=== PATIENT | female | born 2005 | race African-American/Black ===

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

== ENCOUNTER → 2023-10-28 | Outpatient (CLI) | payer OTHER ==
--- NOTE | 2023-10-28 11:11 | US ---
EXAMINATION TYPE: Ultrasound OB <= 14 week fetus DATE OF EXAM: 10/28/2023 10:50 AM COMPARISON: NONE CLINICAL INDICATION: Female, 18 years old with history of N92.6 IRREG MENSTRUATION; Pelvic pain x few days EXAM PERFORMED: Transabdominal (TA) EXAM MEASUREMENTS: GESTATIONAL AGE / DATING Physician Established: NA Dates by LMP: (5 weeks/0 days) EDC: 06/29/2024 Dates by First Scan: This is First Scan Dates by Current Scan for: (8 weeks/4 days) EDC: 06/04/2024 MATERNAL ANATOMY Uterus: 10.4 x 7.7 x 8.5 Transverse images show splitting of the endometrium at the fundus. Right Ovary: 4.1 x 2.1 x 3.5 cm Left Ovary: 3.2 x 2.3 x 2.6 cm Post CDS / Adnexa: No Presence of free fluid: No Presence of corpus luteal cyst: Right ovary Presence of subchorionic bleed: No GESTATION / SURVEY CRL: 1.99 (8 weeks/4 days) MSD: NA Yolk Sac (normal less than 6mm): 0.35 Heart Rate: 166 bpm Rhythm: Normal IUP: Viable IUP Nuchal Translucency 10-14wks (normal less than 3mm): NA Date of LMP: 09/23/2024 Beta HcG (if available): Not available Vrt Mechanic notes: Stat hold and call - office notified; patient to call office with any questions IMPRESSION: 1. Single live intrauterine with estimated gestational age of 5 weeks 0 days by LMP. Mac jose, current ultrasound biometry is older at 8 weeks 4 days. Correlate as to accuracy of recall of LMP. 2. Transverse images show splitting of the endometrium at the fundus of the uterus. Findings could re flect arcuate configuration versus partially septate uterus. 3. Complete survey recommended at 18-20 weeks.
== END | disposition home or self-care (01) ==
LOC: RADUSWWP 10:35
PROVIDERS: ATTEND Internal Medicine
DX: O26.891 Other specified pregnancy related conditions, first trimester (principal); N92.6 Irregular menstruation, unspecified; Z3A.08 8 weeks gestation of pregnancy
CPT/HCPCS: 76801

== ENCOUNTER 2023-11-13 02:15 | Emergency (ER) | payer OTHER ==
[2023-11-13] MEDS ORDERED: IPRATROPIUM-ALBUTEROL 3 ML NEB INHALATION STA (02:17)
[2023-11-13 02:34] VITALS: PULSE 96
--- NOTE | 2023-11-13 02:59 | ED ---
General Adult HPI - General Chief complaint: Shortness of Breath Stated complaint: ANJU Time Seen by Provider: 11/13/23 02:17 Source: patient, EMS, RN notes reviewed, old records reviewed Mode of arrival: EMS Limitations: no limitations - History of Present Illness Initial comments: Patient is a 18-year-old female presents emergency department for asthma exacerbation. Patient was wheezy at home. Was told to stop taking all her medications that she is 2 months by [facility]. Has not followed up with an [facility]. Medications included daily inhaler. States she became more short of breath today. Typically does not require admission to the hospital or evaluation at the hospital for her asthma. However has been off of her daily medication inhaler as it was a steroid inhaler. She denies any sick contacts or fevers. Denies any productive cough. States she feels improved after receiving a DuoNeb on the way to the hospital by EMS. His no other acute complaints at this time. Presents for further evaluation. Denies any vaginal discharge or bleeding. Has not yet followed up with [facility]. - Related Data Previous Rx's Medication Instructions Recorded Paliperidone [Invega] 3 mg PO HS 30 Days #30 tab 06/01/22 lamoTRIgine [LaMICtal] 25 mg PO DAILY #30 tab 06/01/22 levETIRAcetam [Keppra] 500 mg PO Q12HR 30 Days #60 tab 06/01/22 lamoTRIgine [LaMICtal] 25 mg PO DAILY #30 tab 08/12/22 Cephalexin [Keflex] 500 mg PO Q12HR 1 Days #14 cap 08/25/22 Albuterol Inhaler [Ventolin Hfa 2 puff INHALATION QID #8 gm 11/13/23 Inhaler] Allergies Allergy/AdvReac Type Severity Reaction Status Date / Time ondansetron [From Zofran] Allergy Itching Verified 08/12/22 02:12 Review of Systems ROS Statement: Those systems with pertinent positive or pertinent negative responses have been documented in the HPI. Review of Systems: CONST: Denies fever EYES: Denies blurry vision ENT: Denies nasal congestion C/V: Denies Chest pain RESP: Endorses wheezing GI: Denies abdominal pain : Denies dysuria SKIN: Denies rash. MSK: Denies joint pain. NEURO: Denies headache ROS Other: All systems not noted in ROS Statement are negative. Past Medical History Past Medical History: Asthma, Seizure Disorder History of Any Multi-Drug Resistant Organisms: None Reported Past Surgical History: No Surgical Hx Reported Past Psychological History: No Psychological Hx Reported, Schizoaffective Disorder Smoking Status: Current every day smoker, Vaper Past Alcohol Use History: None Reported Past Drug Use History: Marijuana General Exam - General Exam Comments Initial Comments: General: Appears in no acute distress. HEAD: Normal with no signs of head trauma. EYES: PERRLA, EOMI, conjunctiva normal, no discharge. ENT: Hearing grossly intact, normal oropharynx. RESPIRATORY: Mild bilateral end expiratory wheezing. No increased work of breathing. No significant hypoxia. C/V: Regular rate and rhythm. S1 and S2 auscultated, peripheral pulses 2+ and intact throughout ABD: Abd is soft, nontender, nondistended EXT: Normal range of motion, no obvious deformity SKIN: No rashes or lesions observed on exposed skin. NEURO: Alert and oriented x 4. Limitations: no limitations Course Vital Signs 11/13/23 11/13/23 11/13/23 02:22 02:25 02:31 Pulse Rate 111 H 96 Respiratory 20 20 Rate Blood Pressure 130/89 O2 Sat by Pulse 94 L Oximetry Medical Decision Making - Medical Decision Making Was pt. sent in by a medical professional or institution (MEAGAN Olivas, [employer], urgent care, hospital, or correction...) When possible be specific @ -No Did you speak to anyone other than the patient for history (EMS, parent, family, police, friend...)? What history was obtained from this source @ -No Did you review nursing and triage notes (agree or disagree)? Why? @ -I reviewed and agree with nursing and triage notes Were old charts reviewed (outside hosp., previous admission, EMS record, old EKG, old radiological studies, urgent care reports/EKG's, correction records)? Report findings @ -Old charts reviewed Differential Diagnosis (chest pain, altered mental status, abdominal pain women, abdominal pain men, vaginal bleeding, weakness, fever, dyspnea, syncope, headache, dizziness, GI bleed, back pain, seizure, CVA, palpatations, mental health, musculoskeletal)? @ -Asthma, pneumonia, viral infection. This list is not all inclusive. EKG interpreted by me (3pts min.). @ -None done X-rays interpreted by me (1pt min.). @ -None done CT interpreted by me (1pt min.). @ -None done U/S interpreted by me (1pt. min.). @ -None done What testing was considered but not performed or refused? (CT, X-rays, U/S, lab s)? Why? @ -Offered chest x-ray but as the patient is we both agreed to defer at this time. What meds were considered but not given or refused? Why? @ -Consider prednisone but it is a category C rating and that was deferred at this time. Did you discuss the management of the patient with other professionals (professionals i.e. , PA, [employer] MANAGER, lab, RT, psych nurse, social media editor, receiver stocker, teacher, police officer booking, behavioral health case manager)? Give summary @ -No Was smoking cessation discussed for >3mins.? @ -No Was critical care preformed (if so, how long)? @ -No Were there social determinants of health that impacted care today? How? (Homelessness, low income, unemployed, alcoholism, drug addiction, transportation, low edu. Level, literacy, decrease access to med. care, detention, rehab)? @ -No Was there de-escalation of care discussed even if they declined (Discuss DNR or withdrawal of care, Hospice)? DNR status @ -No What co-morbidities impacted this encounter? (DM, HTN, Smoking, COPD, CAD, Cancer, CVA, ARF, Chemo, Hep., AIDS, mental health diagnosis, sleep apnea, morbid obesity)? @ -None Was patient admitted / discharged? Hospital course, mention meds given and route, prescriptions, significant lab abnormalities, going to OR and other pertinent info. @ -Based on the patient's presentation and physical exam, appears to have a mild asthma exacerbation. Is never required admission for an asthma exacerbation. Has been off of her home inhaler. I did offer additional DuoNeb which she accepted. Vital signs currently within acceptable limits. Wheezing seems to be improved. We will obtain viral swabs. Discussed obtaining a chest x-ray will patient is 8 weeks and defers at this time. She is not yet followed up with her [facility]. Denies any vaginal complaints at this time. Vital signs are currently within acceptable limits. Vital signs returned negative. On reevaluation, wheezing has resolved. We discussed her workup and diagnosis of possible URI as well as asthma exacerbation that is very mild. I will write a prescription for albuterol inhaler. We did discuss risks and benefits of prednisone as it is a class C and decided to defer at this time. No indication for antibiotics at this time. Patient will follow up with PCP. I will provide her with a contact info for on-call [facility] T[facility]ER. She is already on vitamins. She was in agreement this plan. I will provide the patient with a prescription for albuterol. I instructed the patient to follow up with their PCP in the next 1-3 days. I explained that the patient should return to the emergency department if they experience any worseni ng symptoms. Strict return precautions were discussed with the patient. The patient expressed understanding of these instructions. I answered all questions that the patient had. The patient was discharged home in good condition with their prescriptions and follow up information. Undiagnosed new problem with uncertain prognosis? @ -No Drug Therapy requiring intensive monitoring for toxicity (Heparin, Nitro, Insulin, Cardizem)? @ -No Were any procedures done? @ -No Diagnosis/symptom? @ -Asthma, uri Acute, or Chronic, or Acute on Chronic? @ -Acute on chronic Uncomplicated (without systemic symptoms) or Complicated (systemic symptoms)? @ -Complicated Side effects of treatment? @ -No Exacerbation, Progression, or Severe Exacerbation? @ -No Poses a threat to life or bodily function? How? (Chest pain, USA, [place], pneumonia, PE, COPD, DKA, ARF, appy, cholecystitis, CVA, Diverticulitis, Homicidal, Suicidal, threat to staff... and all critical care pts) @ -No - Lab Data Lab Results 11/13/23 Range/Units 02:10 Influenza Type A (PCR) Not Detected (Not Detectd) Influenza Type B (PCR) Not Detected (Not Detectd) RSV (PCR) Not Detected (Not Detectd) SARS-CoV-2 (PCR) Not Detected (Not Detectd) Disposition Clinical Impression: Asthma, URI (upper respiratory infection) Disposition: HOME SELF-CARE Condition: Good Instructions (If sedation given, give patient instructions): Asthma (ED) Prescriptions: Albuterol Inhaler [Ventolin Hfa Inhaler] 2 puff INHALATION QID #8 gm Is patient prescribed a controlled substance at d/c from ED?: No Referrals: None,Stated [Primary Care Provider] - 1-2 days Hedy Santiago MD [STAFF PHYSICIAN] - 1-2 days Time of Disposition: 03:29
[2023-11-13 04:13] VITALS: BP 130/76; RESP 16; TEMP 98.2
== END 2023-11-13 03:43 | disposition home or self-care (01) ==
LOC: EC 02:15
DX: O26.891 Other specified pregnancy related conditions, first trimester (principal); O99.511 Diseases of the respiratory system complicating pregnancy, first trimester; J06.9 Acute upper respiratory infection, unspecified; J45.901 Unspecified asthma with (acute) exacerbation; O99.331 Smoking (tobacco) complicating pregnancy, first trimester; F12.90 Cannabis use, unspecified, uncomplicated; F17.290 Nicotine dependence, other tobacco product, uncomplicated; Z88.8 Allergy status to other drugs, medicaments and biological substances; Z20.822 Contact with and (suspected) exposure to COVID-19
CPT/HCPCS: 87636; 94640; 99285

== ENCOUNTER 2023-12-03 16:23 | Emergency (ER) | payer OTHER ==
[2023-12-03] MEDS ORDERED: SODIUM CHLORIDE 0.9% 1,000 ML IV STA (16:40)
[2023-12-03] MEDS ORDERED: METOCLOPRAMIDE 5 MG/ML 2 ML VIAL IVP STA (16:40)
[2023-12-03] MEDS ORDERED: ACETAMINOPHEN IV (For NPO) 1,000 MG in EMPTY BAG 1 BAG IVPB ONE (17:00)
--- NOTE | 2023-12-03 17:03 | ED ---
Female Urogenital HPI - General Source: patient, RN notes reviewed Mode of arrival: EMS Limitations: no limitations - History of Present Illness MD Complaint: vaginal bleeding, vaginal discharge Last Menstrual Period: 08/15/23 <Lauren Galeana - Last Filed: 12/03/23 18:54> <Anuja Mayo - Last Filed: 12/03/23 22:08> - General Chief complaint: OB/Uterine Contractions Stated complaint: 14wk preg-cramping Time Seen by Provider: 12/03/23 16:26 - History of Present Illness Initial comments: This is a 18 year old female who presents to the emergency department for pelvic pain, cramping, and leaking in . Patient is and believes that she is approximately 14 weeks . She was playing volleyball at the [employer] earlier today, and went to sit down to take a break. She then noticed a gush of fluid and bloody discharge, and is concerned that her water broke. She does not yet have an [facility] BU[facility]DER, but states that she has been seeing someone at [facility] She did have an ultrasound there, and they advised that she may be further along than she thought. She has had problems with ongoing cramping for the last couple of weeks. Reports associated nausea and vomiting. (Lauren Galeana) - Related Data Previous Rx's Medication Instructions Recorded Paliperidone [Invega] 3 mg PO HS 30 Days #30 tab 06/01/22 lamoTRIgine [LaMICtal] 25 mg PO DAILY #30 tab 06/01/22 levETIRAcetam [Keppra] 500 mg PO Q12HR 30 Days #60 tab 06/01/22 lamoTRIgine [LaMICtal] 25 mg PO DAILY #30 tab 08/12/22 Cephalexin [Keflex] 500 mg PO Q12HR 1 Days #14 cap 08/25/22 Albuterol Inhaler [Ventolin Hfa 2 puff INHALATION QID #8 gm 11/13/23 Inhaler] Allergies Allergy/AdvReac Type Severity Reaction Status Date / Time ondansetron [From Zofran] Allergy Itching Verified 08/12/22 02:12 Review of Systems ROS Other: All systems not noted in ROS Statement are negative. <Lauren Galeana - Last Filed: 12/03/23 18:54> ROS Other: All systems not noted in ROS Statement are negative. <Anuja Mayo - Last Filed: 12/03/23 22:08> ROS Statement: Those systems with pertinent positive or pertinent negative responses have been documented in the HPI. Past Medical History Past Medical History: Asthma, Seizure Disorder History of Any Multi-Drug Resistant Organisms: None Reported Past Surgical History: No Surgical Hx Reported Past Psychological History: No Psychological Hx Reported, Schizoaffective Disorder Smoking Status: Current every day smoker, Vaper Past Alcohol Use History: None Reported Past Drug Use History: Marijuana <Lauren Galeana - Last Filed: 12/03/23 18:54> General Exam Limitations: no limitations General appearance: alert, in no apparent distress Head exam: Present: atraumatic, normocephalic, normal inspection Respiratory exam: Present: normal lung sounds bilaterally. Absent: respiratory distress, wheezes, rales, rhonchi, stridor Cardiovascular Exam: Present: regular rate, normal rhythm, normal heart sounds. Absent: systolic murmur, diastolic murmur, rubs, gallop, clicks Neurological exam: Present: alert, oriented X3, CN II-XII intact Psychiatric exam: Present: normal affect, normal mood Skin exam: Present: warm, dry, intact, normal color. Absent: rash <Lauren Galeana - Last Filed: 12/03/23 18:54> Course Vital Signs 12/03/23 12/03/23 12/03/23 16:28 17:47 18:57 Temperature 98.0 F Pulse Rate 101 H 74 Respiratory 22 16 16 Rate Blood Pressure 124/77 Blood Pressure 115/76 [Left Arm] O2 Sat by Pulse 100 100 100 Oximetry 12/03/23 22:00 Temperature 98.4 F Pulse Rate 80 Respiratory 18 Rate Blood Pressure 125/74 Blood Pressure [Left Arm] O2 Sat by Pulse 98 Oximetry Medical Decision Making - Lab Data Result diagrams: 12/03/23 16:53 12/03/23 16:53 - Radiology Data Radiology results: report reviewed, image reviewed <Lauren Galeana - Last Filed: 12/03/23 18:54> - Lab Data Result diagrams: 12/03/23 16:53 12/03/23 16:53 <Anuja Mayo - Last Filed: 12/03/23 22:08> - Medical Decision Making This is a 18-year-old female who presents to the emergency department for vaginal bleeding and pelvic pain in . Was pt. sent in by a medical professional or institution? @ -No Did you speak to anyone other than the patient for history? @ -No Did you review nursing and triage notes? @ -Yes, and I agree, it is accurate with regards to the patient's symptoms. Were old charts reviewed? @ -No Differential Diagnosis? @ -Differential Vaginal Bleeding: Spontaneous , threatened , molar , ectopic , incompetent cervix, placenta previa, uterine rupture, dysfunctional uterine bleeding, hemorrhage, uterine fibroids, malignancy, coagulopathy, PID, cervicitis, adenomyosis, vaginal trauma, this is not meant to be an all- inclusive list. EKG interpreted by me (3pts min.)? @ -Not obtained X-rays interpreted by me (1pt min.)? @ -Not obtained CT interpreted by me (1pt min.)? @ -Not obtained U/S interpreted by me (1pt. min.)? @ -Not obtained What testing was considered but not performed? (CT, X-rays, U/S, labs)? Why? @ -None What meds were considered but not given? Why? @ -None Did you discuss the management of the patient with other professionals? @ -No Did you reconcile home meds? @ -No Was smoking cessation discussed for >3mins.? @ -No Was critical care preformed (if so, how long)? @ -No Were there social determinants of health that impacted care today? How? (Homelessness, low income, unemployed, alcoholism, drug addiction, transportation, low edu. Level, literacy, decrease access to med. care, retirement, rehab)? @ -No Was there de-escalation of care discussed even if they declined? (Discuss DNR or withdrawal of care, Hospice)? @ -No What co-morbidities impacted this encounter? (DM, HTN, Smoking, COPD, CAD, Cancer, CVA, Hep., AIDS, mental health diagnosis, sleep apnea, morbid obesity)? @ - Was patient admitted / discharged? @ -Lab work obtained and found to be unremarkable. Beta hCG is 57,181. Blood type is A+ and no RhoGAM is indicated. OB ultrasound obtained revealing a single live intrauterine without any abnormalities to account for the patient's symptoms. Patient may have urinated on herself, causing her to feel like her water broke. Case signed out to Anuja Mayo PA-C, at shift completion pending UA results. Undiagnosed new problem with uncertain prognosis? @ -None Drug Therapy requiring intensive monitoring for toxicity (Heparin, Nitro, Insulin, Cardizem)? @ -None Were any procedures done? @ -None (Lauren Galeana) Patient was signed out to me by previous physician care team assistant Lauren, pending urine results. In short this is a 18-year-old female currently about 14 weeks presenting after she had a gush of fluid today after playing volleyball. Patient has a normal ultrasound revealing single live intrauterine without any abnormalities. Urine returns and shows no bacteria. Urine drug screen positive for marijuana. Patient is discharged home and instructed to follow-up with [facility]. Diagnosis/symptom? @ -Threatened miscarriage Acute, or Chronic, or Acute on Chronic? @ -Acute Uncomplicated (without systemic symptoms) or Complicated (systemic symptoms)? @ -Uncomplicated Side effects of treatment? @ -No Exacerbation, Progression, or Severe Exacerbation? @ -No Poses a threat to life or bodily function? How? (Chest pain, USA, [place], pneumonia, PE, COPD, DKA, ARF, appy, cholecystitis, CVA, Diverticulitis, Homicidal, Suicidal, threat to staff... and all critical care pts) @ -No (Anuja Mayo) - Lab Data Lab Results 12/03/23 12/03/23 12/03/23 Range/Units 16:47 16:53 16:53 WBC 6.4 (4.0-11.0) k/uL RBC 3.96 (3.80-5.40) m/uL Hgb 11.8 (11.4-16.0) gm/dL Hct 34.7 (34.0-46.0) % MCV 87.7 (80.0-100.0) fL MCH 29.7 (25.0-35.0) pg MCHC 33.9 (31.0-37.0) g/dL RDW 14.1 (11.5-15.5) % Plt Count 246 (150-450) k/uL MPV 8.8 Neutrophils % 54 % Lymphocytes % 34 % Monocytes % 4 % Eosinophils % 6 % Basophils % 0 % Neutrophils # 3.4 (1.3-7.7) k/uL Lymphocytes # 2.1 (1.0-4.8) k/uL Monocytes # 0.3 (0-1.0) k/uL Eosinophils # 0.4 (0-0.7) k/uL Basophils # 0.0 (0-0.2) k/uL Sodium (137-145) mmol/L Potassium (3.5-5.1) mmol/L Chloride (98-107) mmol/L Carbon Dioxide (22-30) mmol/L Anion Gap mmol/L BUN (7-17) mg/dL Creatinine (0.52-1.04) mg/dL Est GFR (CKD-EPI)AfAm (>60 ml/min/1.73 sqM) Est GFR (CKD-EPI)NonAf (>60 ml/min/1.73 sqM) Glucose (74-99) mg/dL Calcium (8.4-10.2) mg/dL Total Bilirubin (0.2-1.3) mg/dL AST (14-36) U/L ALT (4-34) U/L Alkaline Phosphatase (38-126) U/L Total Protein (6.3-8.2) g/dL Albumin (3.5-5.0) g/dL HCG, Quant mIU/mL Urine Color Yellow Urine Appearance Clear (Clear) Urine pH 6.0 (5.0-8.0) Ur Specific [place] 1.049 H (1.001-1.035) Urine Protein Trace H (Negative) Urine Glucose (UA) Negative (Negative) Urine Ketones Trace H (Negative) Urine Blood Negative (Negative) Urine Nitrite Negative (Negative) Urine Bilirubin Negative (Negative) Urine Urobilinogen 2.0 (<2.0) mg/dL Ur Leukocyte Esterase Negative (Negative) Urine Opiates Screen (NotDetected) Ur Oxycodone Screen (NotDetected) Urine Methadone Screen (NotDetected) Ur Barbiturates Screen (NotDetected) U Tricyclic Antidepress (NotDetected) Ur Phencyclidine Scrn (NotDetected) Ur Amphetamines Screen (NotDetected) U Methamphetamines Scrn (NotDetected) U Benzodiazepines Scrn (NotDetected) Urine Cocaine Screen (NotDetected) U Marijuana (THC) Screen (NotDetected) Blood Type Blood Type Confirm A Positive Blood Type Recheck Bld Type Recheck Status 12/03/23 12/03/23 12/03/23 Range/Units 16:53 16:53 16:53 WBC (4.0-11.0) k/uL RBC (3.80-5.40) m/uL Hgb (11.4-16.0) gm/dL Hct (34.0-46.0) % MCV (80.0-100.0) fL MCH (25.0-35.0) pg MCHC (31.0-37.0) g/dL RDW (11.5-15.5) % Plt Count (150-450) k/uL MPV Neutrophils % % Lymphocytes % % Monocytes % % Eosinophils % % Basophils % % Neutrophils # (1.3-7.7) k/uL Lymphocytes # (1.0-4.8) k/uL Monocytes # (0-1.0) k/uL Eosinophils # (0-0.7) k/uL Basophils # (0-0.2) k/uL Sodium 136 L (137-145) mmol/L Potassium 3.7 (3.5-5.1) mmol/L Chloride 109 H (98-107) mmol/L Carbon Dioxide 16 L (22-30) mmol/L Anion Gap 11 mmol/L BUN 8 (7-17) mg/dL Creatinine 0.56 (0.52-1.04) mg/dL Est GFR (CKD-EPI)AfAm >90 (>60 ml/min/1.73 sqM) Est GFR (CKD-EPI)NonAf >90 (>60 ml/min/1.73 sqM) Glucose 91 (74-99) mg/dL Calcium 9.3 (8.4-10.2) mg/dL Total Bilirubin 0.4 (0.2-1.3) mg/dL AST 25 (14-36) U/L ALT 17 (4-34) U/L Alkaline Phosphatase 47 (38-126) U/L Total Protein 7.3 (6.3-8.2) g/dL Albumin 4.2 (3.5-5.0) g/dL HCG, Quant 25267.0 mIU/mL Urine Color Urine Appearance (Clear) Urine pH (5.0-8.0) Ur Specific [place] (1.001-1.035) Urine Protein (Negative) Urine Glucose (UA) (Negative) Urine Ketones (Negative) Urine Blood (Negative) Urine Nitrite (Negative) Urine Bilirubin (Negative) Urine Urobilinogen (<2.0) mg/dL Ur Leukocyte Esterase (Negative) Urine Opiates Screen Not Detected (NotDetected) Ur Oxycodone Screen Not Detected (NotDetected) Urine Methadone Screen Not Detected (NotDetected) Ur Barbiturates Screen Not Detected (NotDetected) U Tricyclic Antidepress Not Detected (NotDetected) Ur Phencyclidine Scrn Not Detected (NotDetected) Ur Amphetamines Screen Not Detected (NotDetected) U Methamphetamines Scrn Not Detected (NotDetected) U Benzodiazepines Scrn Not Detected (NotDetected) Urine Cocaine Screen Not Detected (NotDetected) U Marijuana (THC) Screen Detected H (NotDetected) Blood Type A Positive Blood Type Confirm Blood Type Recheck No Previous Record Bld Type Recheck Status CABO Indicated Disposition <Lauren Galeana - Last Filed: 12/03/23 18:54> Is patient prescribed a controlled substance at d/c from ED?: No Time of Disposition: 21:39 <Anuja Mayo - Last Filed: 12/03/23 22:08> Clinical Impression: Threatened miscarriage Disposition: HOME SELF-CARE Condition: Good Instructions (If sedation given, give patient instructions): Threatened Miscarriage (ED) Additional Instructions: Follow-up with [facility]REL [facility]DER. Report back to ER with any new or worsening symptoms. Referrals: Tonia Alaniz MD [Primary Care Provider] - 1-2 days Dari Carcamo DO [Doctor of Osteopathic Medicine] - 1-2 days
[2023-12-03 17:16] LABS: Basophils % (A) 0 %; Eosinophils # (A) 0.4 k/uL (0-0.7); Eosinophils % (A) 6 %; HCT 34.7 % (34.0-46.0); HGB 11.8 gm/dL (11.4-16.0); Lymphocytes # (A) 2.1 k/uL (1.0-4.8); Lymphocytes % (A) 34 %; MCH 29.7 pg (25.0-35.0); MCHC 33.9 g/dL (31.0-37.0); MCV 87.7 fL (80.0-100.0); Mean Platelet Volume 8.8; Monocytes # (A) 0.3 k/uL (0-1.0); Monocytes % (A) 4 %; Neutrophils # (A) 3.4 k/uL (1.3-7.7); Neutrophils % (A) 54 %; Platelet Count 246 k/uL (150-450); RBC 3.96 m/uL (3.80-5.40); RDW 14.1 % (11.5-15.5); WBC 6.4 k/uL (4.0-11.0)
--- NOTE | 2023-12-03 17:30 | US ---
EXAMINATION TYPE: US OB >= 14 wk fetus DATE OF EXAM: 12/03/2023 COMPARISON: None CLINICAL INDICATION: Female, 18 years old with history of Vaginal bleeding/cramping in ; Pt states pain, denies bleeding TECHNIQUE: Transabdominal (TA) GESTATIONAL AGE / DATING Physician Established: (14 weeks/3 days) EDC: 05/30/2024 Dates by LMP: LMP unknown Dates by First Scan: (13 weeks/5 days) EDC: 06/04/2024 Dates by Current Scan: (14 weeks/3 days) EDC: 05/30/2024 SURVEY IUP: Single PLACENTA: Anterior PREVIA: Low Lying CARMEN: Too early- however CARMEN appeared wnl CERVICAL LENGTH (transabdominal: norm > 3.0cm): 3.5 cm BIOMETRY PRESENTATION: Variable BPD: 2.5 cm 14 weeks / 2 days HC: 10.0 cm 14 weeks / 5 days AC: 8.3 cm 14 weeks / 5 days FL: 1.3 cm 14 weeks / 0 days ESTIMATED WEIGHT IN GRAMS: 95 grams ESTIMATED WEIGHT IN LBS/OZ: 0 lbs. 3 oz. WEIGHT PERCENTAGE BASED ON ESTABLISHED DATES: 27% HC/AC: 1.20 Normal FL/AC: 16 Normal HEART RATE: 160 bpm RHYTHM: Normal Single, viable IUP- No abnormality visualized to account for pt's symptoms IMPRESSION: Single viable intrauterine .
[2023-12-03 17:34] LABS: ALT 17 U/L (4-34); AST 25 U/L (14-36); African American GFR (CKD) >90 (>60 ml/min/1.73 sqM); Albumin 4.2 g/dL (3.5-5.0); Alkaline Phosphatase 47 U/L (38-126); Anion Gap 11 mmol/L; Blood Urea Nitrogen 8 mg/dL (7-17); Calcium 9.3 mg/dL (8.4-10.2); Carbon Dioxide 16 mmol/L (22-30); Chloride 109 mmol/L (98-107); Glucose 91 mg/dL (74-99); Non-African American GFR(CKD) >90 (>60 ml/min/1.73 sqM); Potassium 3.7 mmol/L (3.5-5.1); Sodium 136 mmol/L (137-145); Total Bilirubin 0.4 mg/dL (0.2-1.3); Total Protein 7.3 g/dL (6.3-8.2)
[2023-12-03 21:10] LABS: Appearance,Urine Clear (Clear); Bilirubin,Urine Negative (Negative); Blood,Urine Negative (Negative); Color,Urine Yellow; Glucose,Urine (UA) Negative (Negative); Ketones,Urine Trace (Negative); Leukocyte Esterase,Urine Negative (Negative); Nitrite,Urine Negative (Negative); Protein,Urine Trace (Negative)
[2023-12-03 21:19] LABS: Amphetamine Screen,Urine Not Detected (NotDetected); Barbiturate Screen,Urine Not Detected (NotDetected); Benzodiazepines Screen,Urine Not Detected (NotDetected); Cocaine Screen,Urine Not Detected (NotDetected); Methadone Screen, Urine Not Detected (NotDetected); Opiate Screen,Urine Not Detected (NotDetected); Oxycodone Screen, Urine Not Detected (NotDetected); Phencyclidine Screen,Urine Not Detected (NotDetected); Tricyclic Antidepressant,Urine Not Detected (NotDetected); Urn Cannabinoid Scrn Detected (NotDetected)
[2023-12-03 21:36] LABS: Specific Gravity,Urine 1.049 (1.001-1.035)
[2023-12-03 22:27] VITALS: BP 125/74; PULSE 80; RESP 18; TEMP 98.4
== END 2023-12-03 22:00 | disposition home or self-care (01) ==
LOC: EC 16:23
DX: O20.0 Threatened abortion (principal); O99.512 Diseases of the respiratory system complicating pregnancy, second trimester; J45.909 Unspecified asthma, uncomplicated; O99.332 Smoking (tobacco) complicating pregnancy, second trimester; F17.290 Nicotine dependence, other tobacco product, uncomplicated; O99.322 Drug use complicating pregnancy, second trimester; F12.90 Cannabis use, unspecified, uncomplicated; Z88.8 Allergy status to other drugs, medicaments and biological substances; Z3A.14 14 weeks gestation of pregnancy
CPT/HCPCS: 36415; 86900; 86901; 80053; 85025; 81003; 84702; 80306; 76805; 99285; 96365; 96375; 96361; J2765; J0131

== ENCOUNTER 2024-04-24 16:35 | Observation (INO) | payer OTHER ==
[2024-04-24] MEDS: LACTATED RINGERS 1,000 ML IV ONE (17:00)
[2024-04-24 17:12] LABS: Glucose,Whole Blood 113 mg/dL (70-110)
[2024-04-24 18:13] LABS: HCT 35.8 % (34.0-46.0); HGB 11.2 gm/dL (11.4-16.0); MCH 28.3 pg (25.0-35.0); MCHC 31.2 g/dL (31.0-37.0); MCV 90.8 fL (80.0-100.0); Mean Platelet Volume 9.1; Platelet Count 240 k/uL (150-450); RBC 3.95 m/uL (3.80-5.40); RDW 13.7 % (11.5-15.5); WBC 7.1 k/uL (4.0-11.0)
--- NOTE | 2024-04-24 18:25 | P.HPOB ---
History of Present Illness H&P Date: 04/24/24 Chief Complaint: 34-6/7 weeks, IUGR, decreased movement Patient is a 18-year-old 3 para 0-0-2-0 who is admitted to triage at 34- 6/7 weeks as established by an 8-week ultrasound. She is admitted with complaints of decreased movement for the last 2 weeks. She has not been seen in the office since 04/12/2024 and has been diagnosed with intrauterine growth restriction, growth at less than 10th percentile. She has a very poor social situation and has actually been homeless and living out of a hotel recently. She has not had any significant monitoring since the diagnosis of IUGR. She additionally has multiple other complaints including back pain and nausea which may well be normal for . On labor and delivery, she initially had heart tones in the baseline 170s to 180s with average variability. There were no decelerations. She had an IV placed and with IV hydration the heart tones came into a more regular zone of 4 rate. There is no strict reactivity at this time though there is nothing nonreassuring with normal short-term variability present. Obstetrical history: 3 para 0-0-2-0 with current statistics listed in history of present illness. EDC of 06/04/2024 was established by an 8- week ultrasound. Laboratory workup demonstrates a blood type of A+ with a negative antibody screen. Rubella status is immune. The remainder of the laboratory workup was within normal limits. 1 hour Glucola is not documented in the lab flowsheet. Gynecologic history: Reportedly unremarkable with no evidence of or history of STDs. Review of Systems Review of systems is confined to history of present illness. Past Medical History Past Medical History: Asthma, Seizure Disorder History of Any Multi-Drug Resistant Organisms: None Reported Past Surgical History: No Surgical Hx Reported Smoking Status: Former smoker Medications and Allergies Home Medications Medication Instructions Recorded Confirmed Type Albuterol Inhaler [Ventolin Hfa 2 puff INHALATION QID #8 gm 11/13/23 04/24/24 Rx Inhaler] Allergies Allergy/AdvReac Type Severity Reaction Status Date / Time No Known Allergies Allergy Verified 04/24/24 17:10 Exam Intake and Output 04/24/24 04/24/24 04/24/24 06:59 14:59 22:59 Other: Weight 79.832 kg In general, this is a well-developed, well-nourished young woman in no acute distress. Her heart has a regular rhythm and rate without murmur. Her lungs are clear to auscultation bilaterally in all parrish. Her abdomen is gravid, nondistended, has normal active bowel sounds, soft, nontender, and without any palpable masses aside from the uterine fundus. Her extremities are without any cyanosis, clubbing, or edema and are nontender to palpation bilaterally. Digital cervical examination is deferred. Results Abnormal Lab Results - Last 24 Hours (Table) 04/24/24 Range/Units 17:10 POC Glucose (mg/dL) 113 H (70-110) mg/dL Assessment and Plan (1) Intrauterine growth retardation in Current Visit: Yes Status: Acute Code(s): O36.5990 - MATERN CARE FOR OTH OR SUSP POOR FETL GRTH, UNSP TRI, UNSP SNOMED Code(s): 020203051 (2) Decreased movement Current Visit: Yes Status: Acute Code(s): O36.8190 - DECREASED MOVEMENTS, UNSP TRIMESTER, UNSP SNOMED Code(s): 011121909 (3) 34 weeks gestation of Current Visit: Yes Status: Acute Code(s): Z3A.34 - 34 WEEKS GESTATION OF SNOMED Code(s): 32993174 Plan: Patient is admitted for 23-hour observation. There is currently nothing nonreassuring. Labs including CBC and urinalysis are pending at this time. She will have aggressive IV rehydration. Should there be anything concerning, ultrasound will be pursued for biophysical profile as needed. She will be given a regular diet but will otherwise have continuous monitoring through the night. Further disposition will await the evolution of heart tones and symptomatology.
[2024-04-24] MEDS: LACTATED RINGERS 1,000 ML BAG IV STA (18:42)
[2024-04-24 18:43] LABS: Appearance,Urine Cloudy (Clear); Bacteria,Urine Rare /hpf; Bilirubin,Urine 1+ (Negative); Blood,Urine Negative (Negative); Color,Urine Dark Yellow; Glucose,Urine (UA) Negative (Negative); Ketones,Urine Trace (Negative); Leukocyte Esterase,Urine Large (Negative); Mucus,Urine Many /hpf; Nitrite,Urine Negative (Negative); PH, Urine 6.5 (5.0-8.0); Protein,Urine 1+ (Negative); RBC,Urine 7 /hpf (0-5); Specific Gravity,Urine 1.027 (1.001-1.035); Squamous Epithelial Cell,Urine 7 /hpf (0-4); WBC,Urine 9 /hpf (0-5)
[2024-04-24 18:46] LABS: Amphetamine Screen,Urine Not Detected (NotDetected); Barbiturate Screen,Urine Not Detected (NotDetected); Benzodiazepines Screen,Urine Not Detected (NotDetected); Cocaine Screen,Urine Not Detected (NotDetected); Methadone Screen, Urine Not Detected (NotDetected); Opiate Screen,Urine Not Detected (NotDetected); Oxycodone Screen, Urine Not Detected (NotDetected); Phencyclidine Screen,Urine Not Detected (NotDetected); Tricyclic Antidepressant,Urine Not Detected (NotDetected); Urn Cannabinoid Scrn Detected (NotDetected)
[2024-04-24 19:45] LABS: Basophils # (M) 0.14 k/uL (0-0.2); Eosinophils # (M) 0.28 k/uL (0-0.7); Lymphocytes # (M) 3.91 k/uL (1.0-4.8); Monocytes # (M) 1.14 k/uL (0-1.0); Neutrophils # (M) 1.63 k/uL (1.3-7.7); Neutrophils % (M) 23 %; Nucleated Red Blood Cells 0 /100 WBC (0-0); Total Cells Counted 100
[2024-04-24 19:46] LABS: RBC Morphology Normal
[2024-04-24] MEDS: LACTATED RINGERS 1,000 ML IV SCH (20:30)
[2024-04-25] MEDS: ACETAMINOPHEN TAB 325 MG TAB PO PRN (00:14)
--- NOTE | 2024-04-25 09:06 | P.PN ---
Subjective Progress Note Date: 04/25/24 Principal diagnosis: IUGR, homelessness The patient did well overnight. She was on continuous monitoring for the heart rate with a reactive strip. She has no concerns this morning except pulling in her lower back and pelvis. She has felt decreased movement for the past 2 weeks. She denies contractions, leakage of fluid, and vaginal bleeding. Objective - Vital Signs Vital signs: Vital Signs Temp 98.1 F 04/24/24 16:50 Pulse 86 04/24/24 18:20 Resp 18 04/24/24 18:20 BP 120/61 04/24/24 18:20 Pulse Ox FiO2 Intake & Output 04/24/24 04/25/24 04/25/24 18:59 06:59 18:59 Intake Total 3000 Balance 3000 Weight 79.832 kg Intake: IV 3000 Other: # Voids 4 - Exam Focused physical exam is performed. Breathing is non-labored. Abdomen gravid, non-tender. Extremities non-tender and non-edematous. heart tones reactive and reassuring on NST, no contractions traced on tocometer. - Labs CBC & Chem 7: 04/24/24 17:45 Labs: Abnormal Lab Results - Last 24 Hours (Table) 04/24/24 04/24/24 04/24/24 Range/Units 17:10 17:45 17:45 Hgb 11.2 L (11.4-16.0) gm/dL Monocytes # (Manual) 1.14 H (0-1.0) k/uL POC Glucose (mg/dL) 113 H (70-110) mg/dL Urine Appearance Cloudy H (Clear) Urine Protein 1+ H (Negative) Urine Ketones Trace H (Negative) Urine Bilirubin 1+ H (Negative) Ur Leukocyte Esterase Large H (Negative) Urine RBC 7 H (0-5) /hpf Urine WBC 9 H (0-5) /hpf Ur Squamous Epith Cells 7 H (0-4) /hpf Urine Bacteria Rare H (None) /hpf Urine Mucus Many H (None) /hpf U Marijuana (THC) Screen Detected H (NotDetected) Assessment and Plan Assessment: 18 year old at 35 weeks and 0 days with IUGR, h/o seizure disorder, h/o schizophrenia, housing and food insecurity Plan: Will get BPP today for IUGR surveillance. NSTs qShift. Consult to social work for housing and food insecurity. Stable for discharge home once seen by
[2024-04-25 09:18] VITALS: PULSE 80; RESP 16
--- NOTE | 2024-04-25 10:11 | US ---
EXAMINATION TYPE: US OB BPP wo non-stress DATE OF EXAM: 04/25/2024 COMPARISON: NONE CLINICAL INDICATION: Female, 18 years old with history of IUGR; IUGR TECHNIQUE: Transabdominal (TA). Scoring by the garage mechanic during real-time assessment. FINDINGS: BPP PARAMETERS: PRESENTATION: Vertex LIE: Longitudinal?? HEART RATE: 150 bpm RHYTHM: Normal CARMEN: 12.0 DIAPHRAGM IMAGED: Yes BPP SCORIN. Breathin (1 episode of breathing of 30 second duration in 30 minutes of scanning time) 2. Movement: 2 (at least 3 discrete body movements in 30 minutes) 3. Tone: 2 (1 episode of active flexion/extension of limb) 4. CARMEN: 2 (CARMEN index > 5cm) IMPRESSION: TOTAL SCORE: 8 / 8
--- NOTE | 2024-04-25 15:50 | P.DS ---
Providers Date of admission: 04/24/24 18:05 Expected date of discharge: 04/25/24 Attending physician: Hedy Santiago MD Primary care physician: Stated None Hospital Course: Ms. Bellamy is a 18 year old at 35 weks and 0 days as established by 8 week US who was admited after complaints of not feeling movement for 2 weeks. She has not been showing up to her scheduled appointments and testing for IUGR diagnosis that she recently received. She has housing and food insecurity, [place] She also struggles with transportation. Overnight on continuous monitoring the fetus was reactive and reassuring. She did have a BPP today that was 8/8. She met with social work who unfortunately stated there were no local shelters that had room to take her. The have cleared her for discharge. She has been scheduled for an OB visit and NST in the office . Assessment: 18 year old at 35 weeks admitted for decreased movement and extended monitoring, s/p SW consult for homelessness Patient Condition at Discharge: Good Plan - Discharge Summary New Discharge Prescriptions: No Action Albuterol Inhaler [Ventolin Hfa Inhaler] 2 puff INHALATION QID #8 gm Discharge Medication List Albuterol Inhaler [Ventolin Hfa Inhaler] 2 puff INHALATION QID #8 gm 11/13/23 [Rx] Discharge Disposition: HOME SELF-CARE
[2024-04-25 18:44] VITALS: BP 110/56; TEMP 98.1
== END 2024-04-25 18:30 | disposition home or self-care (01) ==
LOC: FBPOP 16:35 → 4FBP 18:05
PROVIDERS: ADMIT Obstetrics & Gynecology; ATTEND Obstetrics & Gynecology
DX: O36.8130 Decreased fetal movements, third trimester, not applicable or unspecified (principal); O36.5930 Maternal care for other known or suspected poor fetal growth, third trimester, not applicable or unspecified; O99.353 Diseases of the nervous system complicating pregnancy, third trimester; G40.909 Epilepsy, unspecified, not intractable, without status epilepticus; O99.343 Other mental disorders complicating pregnancy, third trimester; F20.9 Schizophrenia, unspecified; Z3A.34 34 weeks gestation of pregnancy; Z59.41 Food insecurity; Z59.02 Unsheltered homelessness; Z87.891 Personal history of nicotine dependence
CPT/HCPCS: 59025; 96360; 96361 ×2; 36415; 86900; 86901; 85025; 86850; 81001; 80306; 76819; G0463; G0378; 99214

== ENCOUNTER 2024-05-18 22:55 | Inpatient (IN) | payer OTHER ==
[2024-05-19 01:42] LABS: Amphetamine Screen,Urine Not Detected (NotDetected); Barbiturate Screen,Urine Not Detected (NotDetected); Benzodiazepines Screen,Urine Not Detected (NotDetected); Cocaine Screen,Urine Not Detected (NotDetected); Methadone Screen, Urine Not Detected (NotDetected); Opiate Screen,Urine Not Detected (NotDetected); Oxycodone Screen, Urine Not Detected (NotDetected); Phencyclidine Screen,Urine Not Detected (NotDetected); Tricyclic Antidepressant,Urine Not Detected (NotDetected); Urn Cannabinoid Scrn Detected (NotDetected)
[2024-05-19] MEDS ORDERED: OXYTOCIN 10 UNIT/ML 1 ML VIAL IM PRN (01:43)
[2024-05-19] MEDS ORDERED: miSOPROStoL 200 MCG TAB RECTAL PRN (01:43)
[2024-05-19] MEDS ORDERED: METHYLERGONOVINE 0.2 MG/ML 1 ML AMP IM PRN (01:43)
[2024-05-19] MEDS ORDERED: miSOPROStoL 200 MCG TAB PO PRN (01:43)
[2024-05-19] MEDS ORDERED: TRANEXAMIC 1,000 MG/100ML-NACL 1,000 MG in EMPTY BAG 1 BAG IV PRN (01:43)
[2024-05-19] MEDS ORDERED: CARBOPROST TROMETHAMINE 250 MCG/ML 1 ML AMP IM PRN (01:43)
[2024-05-19] MEDS ORDERED: TERBUTALINE 1 MG/ML VIAL SQ PRN (01:43)
[2024-05-19] MEDS ORDERED: NALBUPHINE 10 MG/ML (10 ML MDV) IV PRN (01:44)
[2024-05-19] MEDS ORDERED: OXYTOCIN 30 UNITS/500 ML NS 30 UNIT in SALINE 1 500ML.BAG IV SCH (01:45)
[2024-05-19] MEDS: LACTATED RINGERS 1,000 ML IV SCH (02:10)
[2024-05-19] MEDS: PENICILLIN G POTASSIUM 5,000,000 UNIT in DEXTROSE 5% IN WATER 100 ML IVPB STA (02:37)
[2024-05-19 02:39] VITALS: RESP 16
[2024-05-19 02:56] LABS: Basophils % (A) 0 %; Eosinophils # (A) 0.1 k/uL (0-0.7); Eosinophils % (A) 1 %; HCT 33.5 % (34.0-46.0); HGB 10.6 gm/dL (11.4-16.0); Hypochromasia Moderate; Lymphocytes # (A) 3.1 k/uL (1.0-4.8); Lymphocytes % (A) 29 %; MCH 28.1 pg (25.0-35.0); MCHC 31.6 g/dL (31.0-37.0); MCV 89.1 fL (80.0-100.0); Mean Platelet Volume 9.4; Monocytes # (A) 0.7 k/uL (0-1.0); Monocytes % (A) 6 %; Neutrophils # (A) 6.6 k/uL (1.3-7.7); Neutrophils % (A) 61 %; Platelet Count 268 k/uL (150-450); RBC 3.76 m/uL (3.80-5.40); RDW 14.3 % (11.5-15.5); WBC 10.7 k/uL (4.0-11.0)
[2024-05-19] MEDS ORDERED: fentaNYL (PF) 50 MCG/ML 5 ML AMP ONE (03:00)
[2024-05-19] MEDS ORDERED: SODIUM CHLORIDE 0.9% 250 ML BAG ONE (03:00)
[2024-05-19] MEDS ORDERED: ROPIVACAINE 5 MG/ML 30 ML VIAL ONE (03:00)
[2024-05-19] MEDS: PENICILLIN G POTASSIUM 2,500,000 UNIT in DEXTROSE 5% IN WATER 100 ML IVPB SCH (06:43)
--- NOTE | 2024-05-19 08:45 | P.HPOB ---
History of Present Illness H&P Date: 05/19/24 Chief Complaint: contractions Ms. Bellamy is a 18 year old at 37 weeks and 5 days with EDC of 06/04/[address] [place] [address] who presents in spontaneous labor. Her has been complicated by history of epilepsy, with last seizure over one year ago. She was on lamotrigine prescribed by [facility] but they were unwilling to refill this medication for her during . She had several missed appointments with Neurology and has not followed up during the . She also has Schizophrenia for which she was on antipsychotics that were stopped during the by [facility]. She also suffers from housing insecurity, with [place] of living in the park throughout the . She was diagnosed with IUGR at 32 week growth and was scheduled for surveillance, however, she did not show up to any of her appointments and was unable to be reached by phone. The patient does have unreliable transportation, often needing to take the bus. Finally, the patient uses marijuana. She has been counseled on the risks of marijuana exposure in and cessation was recommended. The fetus measured in the 13%ile (5 pounds and 13 ounces) at 37 weeks and 3 days, was cephalic, and had BPP 8/8 with normal umbilical artery dopplers. Obstetric history: 2 SABs work-up: blood type A positive, antibody screen negative, rubella immune, VDRL non-reactive, HBsAg negative, HIV negative, HCV Ab negative, gonorrhea negative, chlamydia negative, GBS unknown. Past Medical History Past Medical History: Asthma, Seizure Disorder History of Any Multi-Drug Resistant Organisms: None Reported Past Surgical History: No Surgical Hx Reported Past Anesthesia/Blood Transfusion Reactions: No Reported Reaction Past Psychological History: Anxiety, Depression, Schizoaffective Disorder Smoking Status: Never smoker Past Alcohol Use History: None Reported Past Drug Use History: Marijuana Medications and Allergies Home Medications Medication Instructions Recorded Confirmed Type Albuterol Inhaler [Ventolin Hfa 2 puff INHALATION QID #8 gm 11/13/23 05/18/24 Rx Inhaler] haloperidoL 1 tab PO DAILY 05/18/24 05/18/24 History Allergies Allergy/AdvReac Type Severity Reaction Status Date / Time No Known Allergies Allergy Verified 04/24/24 17:10 Exam Vital Signs Temp Pulse Resp BP 05/18/24 23:09 97.6 F 71 16 132/73 Intake and Output 05/18/24 05/19/24 05/19/24 22:59 06:59 14:59 Intake Total 1999 Output Total 400 Balance 1600 Intake: IV 1999 Output: Urine 400 Other: # Voids 1 Weight 86.183 kg Focused physical exam is performed. This is a healthy-appearing in no apparent distress with epidural. Breathing is non-labored. Abdomen is gravid. Cervix is 9/90/0. AROM is undertaken revealing clear amniotic fluid. Extremities are non-tender and non-edematous. Results Result Diagrams: 05/19/24 02:10 Abnormal Lab Results - Last 24 Hours (Table) 05/18/24 05/19/24 Range/Units 23:53 02:10 RBC 3.76 L (3.80-5.40) m/uL Hgb 10.6 L (11.4-16.0) gm/dL Hct 33.5 L (34.0-46.0) % U Marijuana (THC) Screen Detected H (NotDetected) Assessment and Plan Assessment: 18 year old at 37 weeks and 5 days in spontaneous labor Plan: Admit, clear liquid diet, GBS prophylaxis started by overnight physican for GBS unknown, pitocin augmentation started this morning, s/p epidural, s/p AROM. Continuous EFM and tocometer. Anticipate vaginal delivery.
[2024-05-19] MEDS ORDERED: BENZOCAINE/MENTHOL SPRAY 1 GM/SPRAY AEROSOL TOPICAL PRN (09:53)
[2024-05-19] MEDS ORDERED: diphenhydrAMINE 50 MG CAP PO PRN (09:53)
[2024-05-19] MEDS ORDERED: diphenhydrAMINE 25 MG CAP PO PRN (09:53)
[2024-05-19] MEDS ORDERED: ZOLPIDEM 5 MG TAB PO PRN (09:53)
[2024-05-19] MEDS ORDERED: SIMETHICONE 80 MG CHEWABLE PO PRN (09:53)
[2024-05-19] MEDS ORDERED: LANOLIN CREAM 1 GM TUBE TOPICAL PRN (09:53)
[2024-05-19] MEDS ORDERED: HYDROCORTISONE 2.5% RECTAL CREAM 30 GM TUBE RECTAL PRN (09:53)
[2024-05-19] MEDS ORDERED: diphenhydrAMINE 50 MG/ML 1 ML VIAL IVP PRN ×2 (09:53)
--- NOTE | 2024-05-19 09:53 | P.PROBDLV ---
Vaginal Delivery Note - . Vaginal Delivery Note: DATE OF SERVICE: 05/19/2024 PROCEDURE: Normal Vaginal Delivery ATTENDING: Dr. Hedy Santiago MD ESTIMATED BLOOD LOSS: 100 mL FINDINGS: VMI, Apgars 8/9. Weight 5 pounds and 13 ounces (2635 grams) PROCEDURE: Ms. Bellamy is a 18 year old at 37 weeks and 5 days presenting to labor and delivery in spontaneous labor. The has been complicated by IUGR that resolved, no small for gestational age. She has also struggled with homelessness, schizophrenia, epilepsy, and marijuana use. For further details, please review the admitting H&P. AROM was underatekn at 820 revealing clear amniotic fluid. Pitocin augmentation was started. The patient was completely dilated at 846. She pushed effectively with category I heart tones. A viable male was delivered at 904. The infant was placed on the maternal abdomen and bulb suctioned. The was noted to be spontaneously crying. Cord was clamped and cut after a 60-second delay. The was handed off to the pediatric team. Placenta was delivered whole with gentle cord traction at 908. Oxytocin was started to facilitate uterine tone. Uterine fundus was found to be firm and below the umbilicus upon fundal massage. Thorough examination of the cervix, vagina, periurethral area, and perineum revealed bilateral superficial periuretheral lacerations that were reapired with 3-0 Chromic in a figure of eight fashion. The patient is stable and allowed to begin the bonding process.
[2024-05-19] MEDS: LIDOCAINE 0.5% (PF) 5 MG/ML (50 ML SDV) SQ PRN (10:02)
[2024-05-19] MEDS: IBUPROFEN 600 MG TAB PO PRN (13:05)
[2024-05-19] MEDS: SENNOSIDES-DOCUSATE SODIUM 1 EACH TAB PO SCH (19:59)
[2024-05-19] MEDS: ACETAMINOPHEN TAB 325 MG TAB PO PRN (23:44)
[2024-05-20 06:53] LABS: Basophils % (A) 0 %; Eosinophils # (A) 0.1 k/uL (0-0.7); Eosinophils % (A) 1 %; HCT 29.7 % (34.0-46.0); HGB 9.6 gm/dL (11.4-16.0); Hypochromasia Slight; Lymphocytes # (A) 3.2 k/uL (1.0-4.8); Lymphocytes % (A) 30 %; MCH 29.5 pg (25.0-35.0); MCHC 32.3 g/dL (31.0-37.0); MCV 91.3 fL (80.0-100.0); Mean Platelet Volume 9.9; Monocytes # (A) 0.6 k/uL (0-1.0); Monocytes % (A) 5 %; Neutrophils # (A) 6.8 k/uL (1.3-7.7); Neutrophils % (A) 63 %; Platelet Count 180 k/uL (150-450); RBC 3.25 m/uL (3.80-5.40); RDW 14.8 % (11.5-15.5); WBC 10.9 k/uL (4.0-11.0)
--- NOTE | 2024-05-20 09:28 | P.PNOBGVD ---
Subjective - Subjective Principal diagnosis: Status post normal vaginal delivery day #1 Interval history: Patient seen and examined. She is seeing eating breakfast and her hospital bed. Patient denies nausea, vomiting, chest pain, shortness of breath or calf pain. Her lochia is decreasing and does complains of some mild cramps. She knows the baby has to stay another night considering she was on Haldol during her . Patient would like to stay another night as well. Patient reports: Reports appetite normal, Reports voiding normally, Reports pain well controlled, Reports ambulating normally Objective - Latest Vital Signs Latest vital signs: Vital Signs Temp Pulse Resp BP Pulse Ox 05/20/24 08:00 98.0 F 56 L 16 126/84 05/20/24 00:00 98.1 F 73 16 114/76 100 05/19/24 20:01 69 16 109/59 97 05/19/24 13:11 72 16 126/74 05/19/24 11:11 85 16 134/74 05/19/24 10:56 64 16 132/68 05/19/24 10:41 63 16 136/87 05/19/24 10:26 58 L 16 134/80 05/19/24 10:11 55 L 16 124/66 05/19/24 09:56 58 L 16 130/87 05/19/24 09:41 64 16 126/85 Intake and Output 05/19/24 05/20/24 05/20/24 22:59 06:59 14:59 Other: # Voids 1 1 1 - Exam Lungs: bilateral: normal Chest: Normal S1, Normal S2 Extremities: Present: normal Abdomen: Present: normal appearance, soft Uterus: Present: normal, firm - Labs Labs: Abnormal Lab Results - Last 24 Hours (Table) 05/20/24 Range/Units 06:45 RBC 3.25 L (3.80-5.40) m/uL Hgb 9.6 L (11.4-16.0) gm/dL Hct 29.7 L (34.0-46.0) % Assessment and Plan (1) Status post normal vaginal delivery Current Visit: Yes Status: Acute Code(s): [id number] - SNOMED Code(s): 219335104 Plan: 1. Continue postoperative care
[2024-05-21 10:13] VITALS: BP 132/63; PULSE 80; TEMP 97.9
--- NOTE | 2024-05-21 12:08 | P.DS ---
Providers Date of admission: 05/19/24 01:13 Expected date of discharge: 05/21/24 Attending physician: Hedy Santiago MD Primary care physician: Stated None - Discharge Diagnosis(es) (1) Status post normal vaginal delivery Current Visit: Yes Status: Acute Hospital Course: Patient presented in labor and underwent a normal vaginal delivery. course has been uneventful. Patient denies nausea, vomiting, chest pain, shortness of breath or calf pain. Patient plans to go home with her mother in follow-up with Dr. Jaquez for her baby and Dr. Grey dos santos for care. She denies nausea, vomiting, chest pain, shortness of breath or calf pain. Patient will be discharged home day #2 in stable condition Plan - Discharge Summary New Discharge Prescriptions: New Ibuprofen [Motrin] 600 mg PO Q6HR PRN #30 tab PRN Reason: Mild Pain (Scale 1 To 3) No Action Albuterol Inhaler [Ventolin Hfa Inhaler] 2 puff INHALATION QID #8 gm haloperidoL 1 tab PO DAILY Discharge Medication List Albuterol Inhaler [Ventolin Hfa Inhaler] 2 puff INHALATION QID #8 gm 11/13/23 [Rx] haloperidoL 1 tab PO DAILY 05/18/24 [History] Ibuprofen [Motrin] 600 mg PO Q6HR PRN #30 tab 05/21/24 [Rx] Follow up Appointment(s)/Referral(s): [facility] [Outside] - 1 Week Hedy Santiago MD [STAFF PHYSICIAN] - 6 Weeks Discharge Disposition: HOME SELF-CARE
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
== END 2024-05-21 15:45 | disposition home or self-care (01) | DRG 560 ==
LOC: FBPOP 22:55 → 4FBP 05-19 01:13
PROVIDERS: ADMIT Obstetrics & Gynecology; ATTEND Obstetrics & Gynecology
PROC: 0UQMXZZ Repair Vulva, External Approach (ICD-10-PCS; principal; 2024-05-19)
PROC: 10907ZC Drainage of Amniotic Fluid, Therapeutic from Products of Conception, Via Natural or Artificial Opening (ICD-10-PCS; principal; 2024-05-19)
PROC: 4A1HXCZ Monitoring of Products of Conception, Cardiac Rate, External Approach (ICD-10-PCS; principal; 2024-05-19)
PROC: 10E0XZZ Delivery of Products of Conception, External Approach (ICD-10-PCS; principal; 2024-05-19)
DX: O36.5930 Maternal care for other known or suspected poor fetal growth, third trimester, not applicable or unspecified (principal); O99.344 Other mental disorders complicating childbirth; O99.354 Diseases of the nervous system complicating childbirth; O99.52 Diseases of the respiratory system complicating childbirth; O99.324 Drug use complicating childbirth; O71.82 Other specified trauma to perineum and vulva; J45.909 Unspecified asthma, uncomplicated; G40.909 Epilepsy, unspecified, not intractable, without status epilepticus; F41.9 Anxiety disorder, unspecified; F25.9 Schizoaffective disorder, unspecified; Z37.0 Single live birth; F32.A Depression, unspecified; Z3A.37 37 weeks gestation of pregnancy; Z59.00 Homelessness unspecified; Z59.82 Transportation insecurity; Z79.899 Other long term (current) drug therapy; Z28.310 Unvaccinated for COVID-19; Z28.21 Immunization not carried out because of patient refusal
CPT/HCPCS: 59025; 80306; 84112; 85025; 86850; 86900; 86901; 99213

== ENCOUNTER 2024-11-11 16:08 | Emergency (ER) | payer OTHER ==
--- NOTE | 2024-11-11 18:07 | XR ---
EXAMINATION TYPE: XR KUB DATE OF EXAM: 11/11/2024 5:57 PM COMPARISON: None CLINICAL INDICATION: Female, 19 years old with history of abdominal pain; [facility] TECHNIQUE: One radiographic view of the abdomen was obtained. FINDINGS: The bowel gas pattern is nonspecific without dilated loops of small or large bowel. . Fecal material and gas are demonstrated throughout the colon and rectum. There is no evidence for organome tuyet or pneumoperitoneum. The osseous structures are intact. No abnormal calcifications are present . IMPRESSION: Nonspecific bowel gas pattern without radiographic evidence for acute process. [facility], , 11/11/2024 6:04 PM
--- NOTE | 2024-11-11 18:53 | ED ---
Abdominal Pain HPI - General Source: patient, RN notes reviewed Mode of arrival: ambulatory Limitations: no limitations - History of Present Illness MD Complaint: abdominal pain Onset/Timin -: days(s) Location: diffuse Radiation: none Migration to: no migration Quality: cramping Consistency: constant Improves With: nothing Worsens With: nothing Associated Symptoms: nausea, vomiting <Arden Jasmine - Last Filed: 11/11/24 22:53> <Anuja Mayo - Last Filed: 11/12/24 00:30> - General Chief Complaint: Abdominal Pain Stated Complaint: Vomiting Time Seen by Provider: 11/11/24 16:21 - History of Present Illness Initial Comments: This is a 19-year-old female presenting with nausea/vomiting, s/o abdominal pain (03/10) x 1 week. Patient describes pain as constant and squeezing. Denies [id number] medication use. Denies fever, chills, chest pain, dyspnea, diarrhea, constipation, hematemesis, dysuria, vaginal bleeding, vaginal discharge. (Arden Jasmine) - Related Data Home Medications Medication Instructions Recorded Confirmed haloperidoL 1 tab PO DAILY 05/18/24 05/18/24 Previous Rx's Medication Instructions Recorded Albuterol Inhaler [Ventolin Hfa 2 puff INHALATION QID #8 gm 11/13/23 Inhaler] Ibuprofen [Motrin] 600 mg PO Q6HR PRN #30 tab 05/21/24 Cephalexin [Keflex] 500 mg PO Q8HR 1 Days #30 cap 11/11/24 Tlj-[id number]-Rphqm Acid 1 cap PO DAILY #30 cap 11/11/24 [-U Capsule (formulary)] Allergies Allergy/AdvReac Type Severity Reaction Status Date / Time No Known Allergies Allergy Verified 11/11/24 16:50 Review of Systems ROS Other: All systems not noted in ROS Statement are negative. <Arden Jasmine - Last Filed: 11/11/24 22:53> ROS Other: All systems not noted in ROS Statement are negative. <Anuja Mayo - Last Filed: 11/12/24 00:30> ROS Statement: Those systems with pertinent positive or pertinent negative responses have been documented in the HPI. Past Medical History Past Medical History: Asthma, Seizure Disorder History of Any Multi-Drug Resistant Organisms: None Reported Past Surgical History: No Surgical Hx Reported Past Anesthesia/Blood Transfusion Reactions: No Reported Reaction Past Psychological History: Anxiety, Depression, Schizoaffective Disorder Smoking Status: Never smoker Past Alcohol Use History: None Reported Past Drug Use History: Marijuana <Arden Jasmine - Last Filed: 11/11/24 22:53> General Exam Limitations: no limitations General appearance: alert, in no apparent distress Head exam: Present: atraumatic, normocephalic, normal inspection Eye exam: Present: normal appearance, PERRL, EOMI. Absent: scleral icterus, conjunctival injection, periorbital swelling ENT exam: Present: normal exam, mucous membranes moist Neck exam: Present: normal inspection. Absent: tenderness, meningismus, lymphadenopathy Respiratory exam: Present: normal lung sounds bilaterally. Absent: respiratory distress, wheezes, rales, rhonchi, stridor Cardiovascular Exam: Present: regular rate, normal rhythm, normal heart sounds. Absent: systolic murmur, diastolic murmur, rubs, gallop, clicks GI/Abdominal exam: Present: soft, normal bowel sounds. Absent: distended, tenderness, guarding, rebound, rigid Extremities exam: Present: normal inspection, full ROM, normal capillary refill. Absent: tenderness, pedal edema, joint swelling, calf tenderness Back exam: Present: normal inspection. Absent: CVA tenderness (R), CVA tenderness (L) Neurological exam: Present: alert, oriented X3, CN II-XII intact Psychiatric exam: Present: normal affect, normal mood Skin exam: Present: warm, dry, intact, normal color. Absent: rash <Arden Jasmine - Last Filed: 11/11/24 22:53> Course Vital Signs 11/11/24 11/11/24 16:50 22:58 Temperature 98.4 F 98.7 F Pulse Rate 69 89 Respiratory 18 16 Rate Blood Pressure 116/75 114/71 O2 Sat by Pulse 100 99 Oximetry Medical Decision Making - Lab Data Result diagrams: 11/11/24 19:37 11/11/24 20:50 <Arden Jasmine - Last Filed: 11/11/24 22:53> - Lab Data Result diagrams: 11/11/24 19:37 11/11/24 20:50 <Anuja Mayo - Last Filed: 11/12/24 00:30> - Medical Decision Making Was pt. sent in by a medical professional or institution (MEAGAN Olivas, LITHOGRAPHING MACHINE OPERATOR, urgent care, hospital, or correction...) When possible be specific @ -[No] Did you speak to anyone other than the patient for history (EMS, parent, family, police, friend...)? What history was obtained from this source @ -[No] Did you review nursing and triage notes (agree or disagree)? Why? @ -[I reviewed and agree with nursing and triage notes] Were old charts reviewed (outside hosp., previous admission, EMS record, old EKG, old radiological studies, urgent care reports/EKG's, correction records)? Report findings @ -[No old charts were reviewed] Differential Diagnosis (chest pain, altered mental status, abdominal pain women, abdominal pain men, vaginal bleeding, weakness, fever, dyspnea, syncope, headache, dizziness, GI bleed, back pain, seizure, CVA, palpatations, mental health, musculoskeletal)? @ -Differential Abdominal Pain Women: Appendicitis, Cholecystitis, diverticulosis, ischemic bowel, pancreatitis, hepatitis, UTI, gastroenteritis, AAA, incarcerated hernia, bowel obstruction, constipation, inflammatory bowel, hepatitis, peptic ulcer disease, splenic infarction, perforated viscus, vulvitis, ovarian torsion, PID, kidney stone, placenta abruption, this is not meant to be an all-inclusive list EKG interpreted by me (3pts min.). @ -Not done X-rays interpreted by me (1pt min.). @ -[None done] CT interpreted by me (1pt min.). @ -[None done] U/S interpreted by me (1pt. min.). @ -[None done] What testing was considered but not performed or refused? (CT, X-rays, U/S, labs)? Why? @ -[None] What meds were considered but not given or refused? Why? @ -[None] Did you discuss the management of the patient with other professionals (professionals i.e. MEAGAN Olivas, LITHOGRAPHING MACHINE OPERATOR, lab, RT, psych nurse, social worker delinquency prevention, technology infusion specialist, teacher, customs and border protection officer, window caser)? Give summary @ -[No] Was smoking cessation discussed for >3mins.? @ -[No] Was critical care preformed (if so, how long)? @ -[No] Were there social determinants of health that impacted care today? How? (Homelessness, low income, unemployed, alcoholism, drug addiction, transportation, low edu. Level, literacy, decrease access to med. care, retirement, rehab)? @ -[No] Was there de-escalation of care discussed even if they declined (Discuss DNR or withdrawal of care, Hospice)? DNR status @ -[No] What co-morbidities impacted this encounter? (DM, HTN, Smoking, COPD, CAD, Cancer, CVA, ARF, Chemo, Hep., AIDS, mental health diagnosis, sleep apnea, morbid obesity)? @ -[None] Was patient admitted / discharged? Hospital course, mention meds given and route, prescriptions, significant lab abnormalities, going to OR and other pertinent info. @ -[hospital course] Undiagnosed new problem with uncertain prognosis? @ -[No] Drug Therapy requiring intensive monitoring for toxicity (Heparin, Nitro, Insulin, Cardizem)? @ -[No] Were any procedures done? @ -[No] Diagnosis/symptom? @ -Incidental finding, UTI during Acute, or Chronic, or Acute on Chronic? @ -Acute Uncomplicated (without systemic symptoms) or Complicated (systemic symptoms)? @ -Uncomplicated Side effects of treatment? @ -[No] Exacerbation, Progression, or Severe Exacerbation? @ -[No] Poses a threat to life or bodily function? How? (Chest pain, [place], CA, pneumonia, PE, COPD, DKA, ARF, appy, cholecystitis, CVA, Diverticulitis, Homicidal, Ameena cidal, threat to staff... and all critical care pts) @ -[No] (Arden Jasmine) Patient was signed out to me pending ultrasound results. Patient did not want to wait any longer for her ultrasound results and wanted to leave, nursing staff discharged her without my knowledge. Ultrasound later comes back to show very early intrauterine gestation with an estimated gestational age of 4 weeks 6 days. (Anuja Mayo) - Lab Data Lab Results 11/11/24 11/11/24 11/11/24 Range/Units 19:37 20:25 20:25 WBC 6.9 (3.8-10.6) k/uL RBC 4.33 (3.80-5.40) m/uL Hgb 12.3 (11.4-16.0) gm/dL Hct 37.6 (34.0-46.0) % MCV 86.8 (80.0-100.0) fL MCH 28.4 (25.0-35.0) pg MCHC 32.8 (31.0-37.0) g/dL RDW 13.9 (11.5-15.5) % Plt Count 281 (150-450) k/uL MPV 8.6 Neutrophils % 31 % Lymphocytes % 54 % Monocytes % 5 % Eosinophils % 6 % Basophils % 1 % Neutrophils # 2.2 (1.3-7.7) k/uL Lymphocytes # 3.7 (1.0-4.8) k/uL Monocytes # 0.3 (0-1.0) k/uL Eosinophils # 0.4 (0-0.7) k/uL Basophils # 0.1 (0-0.2) k/uL Sodium (137-145) mmol/L Potassium (3.5-5.1) mmol/L Chloride (98-107) mmol/L Carbon Dioxide (22-30) mmol/L Anion Gap mmol/L BUN (7-17) mg/dL Creatinine (0.52-1.04) mg/dL Est GFR (CKD-EPI)AfAm (>60 ml/min/1.73 sqM) Est GFR (CKD-EPI)NonAf (>60 ml/min/1.73 sqM) Glucose (74-99) mg/dL Calcium (8.4-10.2) mg/dL Total Bilirubin (0.2-1.3) mg/dL AST (14-36) U/L ALT (4-34) U/L Alkaline Phosphatase (38-126) U/L Total Protein (6.3-8.2) g/dL Albumin (3.5-5.0) g/dL Amylase (30-110) U/L Lipase (23-300) U/L HCG, Quant mIU/mL Urine Color Yellow Urine Appearance Cloudy H (Clear) Urine pH 6.5 (5.0-8.0) Ur Specific [place] 1.022 (1.001-1.035) Urine Protein Negative (Negative) Urine Glucose (UA) Negative (Negative) Urine Ketones Negative (Negative) Urine Blood Negative (Negative) Urine Nitrite Negative (Negative) Urine Bilirubin Negative (Negative) Urine Urobilinogen 2.0 (<2.0) mg/dL Ur Leukocyte Esterase Moderate H (Negative) Urine RBC 1 (0-5) /hpf Urine WBC 46 H (0-5) /hpf Ur Squamous Epith Cells 20 H (0-4) /hpf Amorphous Sediment Rare H (None) /hpf Urine Mucus Rare H (None) /hpf Urine HCG, Qual Detected (Not Detectd) 11/11/24 11/11/24 Range/Units 20:50 21:42 WBC (3.8-10.6) k/uL RBC (3.80-5.40) m/uL Hgb (11.4-16.0) gm/dL Hct (34.0-46.0) % MCV (80.0-100.0) fL MCH (25.0-35.0) pg MCHC (31.0-37.0) g/dL RDW (11.5-15.5) % Plt Count (150-450) k/uL MPV Neutrophils % % Lymphocytes % % Monocytes % % Eosinophils % % Basophils % % Neutrophils # (1.3-7.7) k/uL Lymphocytes # (1.0-4.8) k/uL Monocytes # (0-1.0) k/uL Eosinophils # (0-0.7) k/uL Basophils # (0-0.2) k/uL Sodium 136 L (137-145) mmol/L Potassium 3.9 (3.5-5.1) mmol/L Chloride 106 (98-107) mmol/L Carbon Dioxide 18 L (22-30) mmol/L Anion Gap 12 mmol/L BUN 9 (7-17) mg/dL Creatinine 0.58 (0.52-1.04) mg/dL Est GFR (CKD-EPI)AfAm >90 (>60 ml/min/1.73 sqM) Est GFR (CKD-EPI)NonAf >90 (>60 ml/min/1.73 sqM) Glucose 95 (74-99) mg/dL Calcium 8.6 (8.4-10.2) mg/dL Total Bilirubin 0.4 (0.2-1.3) mg/dL AST 21 (14-36) U/L ALT 11 (4-34) U/L Alkaline Phosphatase 37 L (38-126) U/L Total Protein 6.8 (6.3-8.2) g/dL Albumin 4.0 (3.5-5.0) g/dL Amylase 88 (30-110) U/L Lipase 110 (23-300) U/L HCG, Quant 924.7 mIU/mL Urine Color Urine Appearance (Clear) Urine pH (5.0-8.0) Ur Specific [place] (1.001-1.035) Urine Protein (Negative) Urine Glucose (UA) (Negative) Urine Ketones (Negative) Urine Blood (Negative) Urine Nitrite (Negative) Urine Bilirubin (Negative) Urine Urobilinogen (<2.0) mg/dL Ur Leukocyte Esterase (Negative) Urine RBC (0-5) /hpf Urine WBC (0-5) /hpf Ur Squamous Epith Cells (0-4) /hpf Amorphous Sediment (None) /hpf Urine Mucus (None) /hpf Urine HCG, Qual (Not Detectd) Disposition Is patient prescribed a controlled substance at d/c from ED?: No <Arden Jasmine - Last Filed: 11/11/24 22:53> <Anuja Mayo - Last Filed: 11/12/24 00:30> Clinical Impression: , UTI (urinary tract infection) during Disposition: HOME SELF-CARE Condition: Good Instructions (If sedation given, give patient instructions): Nausea and Vomiting in (ED), (ED), Urinary Tract Infection in (ED) Additional Instructions: Follow-up with [facility] in next 48 hours for repeat hCG. Prescriptions: Cephalexin [Keflex] 500 mg PO Q8HR 1 Days #30 cap [id number] Acid [-U Capsule (formulary)] 1 cap PO DAILY #30 cap Referrals: None,Stated [Primary Care Provider] - 1-2 days
[2024-11-11 20:06] LABS: Basophils # (A) 0.1 k/uL (0-0.2); Basophils % (A) 1 %; Eosinophils # (A) 0.4 k/uL (0-0.7); Eosinophils % (A) 6 %; HCT 37.6 % (34.0-46.0); HGB 12.3 gm/dL (11.4-16.0); Lymphocytes # (A) 3.7 k/uL (1.0-4.8); Lymphocytes % (A) 54 %; MCH 28.4 pg (25.0-35.0); MCHC 32.8 g/dL (31.0-37.0); MCV 86.8 fL (80.0-100.0); Mean Platelet Volume 8.6; Monocytes # (A) 0.3 k/uL (0-1.0); Monocytes % (A) 5 %; Neutrophils # (A) 2.2 k/uL (1.3-7.7); Neutrophils % (A) 31 %; Platelet Count 281 k/uL (150-450); RBC 4.33 m/uL (3.80-5.40); RDW 13.9 % (11.5-15.5); WBC 6.9 k/uL (3.8-10.6)
[2024-11-11] MEDS: SODIUM CHLORIDE 0.9% 1,000 ML IV STA (20:24)
[2024-11-11] MEDS: ONDANSETRON 4 MG/2 ML VIAL IVP STA ×2 (20:24→21:19)
[2024-11-11 21:15] LABS: ALT 11 U/L (4-34); AST 21 U/L (14-36); African American GFR (CKD) >90 (>60 ml/min/1.73 sqM); Alkaline Phosphatase 37 U/L (38-126); Amylase 88 U/L (30-110); Anion Gap 12 mmol/L; Blood Urea Nitrogen 9 mg/dL (7-17); Calcium 8.6 mg/dL (8.4-10.2); Carbon Dioxide 18 mmol/L (22-30); Chloride 106 mmol/L (98-107); Glucose 95 mg/dL (74-99); Lipase 110 U/L (23-300); Non-African American GFR(CKD) >90 (>60 ml/min/1.73 sqM); Potassium 3.9 mmol/L (3.5-5.1); Sodium 136 mmol/L (137-145); Total Bilirubin 0.4 mg/dL (0.2-1.3); Total Protein 6.8 g/dL (6.3-8.2)
[2024-11-11 21:16] LABS: Amorphous Sediment,Urine Rare /hpf; Appearance,Urine Cloudy (Clear); Bilirubin,Urine Negative (Negative); Blood,Urine Negative (Negative); Color,Urine Yellow; Glucose,Urine (UA) Negative (Negative); Ketones,Urine Negative (Negative); Leukocyte Esterase,Urine Moderate (Negative); Mucus,Urine Rare /hpf; Nitrite,Urine Negative (Negative); PH, Urine 6.5 (5.0-8.0); Protein,Urine Negative (Negative); RBC,Urine 1 /hpf (0-5); Specific Gravity,Urine 1.022 (1.001-1.035); Squamous Epithelial Cell,Urine 20 /hpf (0-4); WBC,Urine 46 /hpf (0-5)
[2024-11-11] MEDS: CEPHALEXIN 500 MG CAP PO STA (22:33)
[2024-11-11 22:58] VITALS: BP 114/71; PULSE 89; RESP 16; TEMP 98.7
--- NOTE | 2024-11-12 00:24 | US ---
EXAM: US , Transvaginal CLINICAL HISTORY: ITS.REASON US Reason: abd pain, new positive hCG TECHNIQUE: Real-time transvaginal obstetrical ultrasound of the maternal pelvis and a first trimester with image documentation. Transvaginal imaging was used for better evaluation of the fetus and adnexa. COMPARISON: No relevant prior studies available. FINDINGS: Gestation: Cystic structure within the endometrium measuring 0.4 cm within the endometrium yielding an estimated gestational age of 4 weeks 6 days. Placenta/amniotic fluid: 0.6 x 0.8 x 0.5 cm hypoechoic structure subtending the gestational sac consistent with a subchorionic hemorrhage. Uterus/cervix: Unremarkable. No myometrial mass. Ovaries: Dilated tubular structure within the left adnexa may represent hydrosalpinx. 1.5 cm left ovarian cyst. No mass. Free fluid: Trace free fluid within the cul-de-sac likely physiologic in nature. IMPRESSION: Very early intrauterine gestation with an estimated gestational age of 4 weeks 6 days. Recommend serial beta hCGs and repeat ultrasound to assess for continued development
== END 2024-11-11 22:58 | disposition home or self-care (01) ==
LOC: EC 16:08
DX: O23.41 Unspecified infection of urinary tract in pregnancy, first trimester (principal); N39.0 Urinary tract infection, site not specified; Z3A.01 Less than 8 weeks gestation of pregnancy
CPT/HCPCS: 36415; 80053; 82150; 83690; 85025; 81001; 81025; 84702; 87086; 74018; 76801; 76817; 99284; 96365; 96375; 96376; 96361; J2405; J0696

== ENCOUNTER 2025-01-31 16:06 | Emergency (ER) | payer OTHER ==
[2025-01-31] MEDS: SODIUM CHLORIDE 0.9% 1,000 ML IV ONE ×2 (16:26→18:21)
--- NOTE | 2025-01-31 16:26 | ED ---
General Adult HPI - General Chief complaint: Vaginal Bleeding Stated complaint: vaginal bleeding, 17 wks prg Time Seen by Provider: 01/31/25 16:08 Source: patient, EMS, RN notes reviewed Mode of arrival: EMS Limitations: no limitations - History of Present Illness Initial comments: 19-year-old G4, P1 female presents to the emergency department for evaluation of vaginal bleeding in . Patient reports that she is 17 weeks and started experiencing vaginal bleeding 3 days ago. She notes that initially it was fairly heavy and she was passing clots. It had tapered down yesterday. Again this morning she noted that she had went through multiple pads. At this time, the bleeding is light, less than a menstrual period. She does admit to lower abdominal/suprapubic cramping. Her last ultrasound was in October. Denies any recent fever, chills. Denies any dysuria. Denies changes in bowel movements. - Related Data Home Medications Medication Instructions Recorded Confirmed haloperidoL 1 tab PO DAILY 05/18/24 05/18/24 Previous Rx's Medication Instructions Recorded Albuterol Inhaler [Ventolin Hfa 2 puff INHALATION QID #8 gm 11/13/23 Inhaler] Ibuprofen [Motrin] 600 mg PO Q6HR PRN #30 tab 05/21/24 Cephalexin [Keflex] 500 mg PO Q8HR 1 Days #30 cap 11/11/24 Plx-Glyk-Azxrt Acid 1 cap PO DAILY #30 cap 11/11/24 [-U Capsule (formulary)] Allergies Allergy/AdvReac Type Severity Reaction Status Date / Time No Known Allergies Allergy Verified 11/11/24 16:50 Review of Systems ROS Statement: Those systems with pertinent positive or pertinent negative responses have been documented in the HPI. ROS Other: All systems not noted in ROS Statement are negative. Past Medical History Past Medical History: Asthma, Seizure Disorder History of Any Multi-Drug Resistant Organisms: None Reported Past Surgical History: No Surgical Hx Reported Past Anesthesia/Blood Transfusion Reactions: No Reported Reaction Past Psychological History: Anxiety, Depression, Schizoaffective Disorder Smoking Status: Never smoker Past Alcohol Use History: None Reported Past Drug Use History: Marijuana General Exam Limitations: no limitations General appearance: alert, in no apparent distress Head exam: Present: atraumatic, normocephalic, normal inspection Eye exam: Present: normal appearance, PERRL, EOMI. Absent: scleral icterus, conjunctival injection, periorbital swelling ENT exam: Present: normal exam, mucous membranes moist Neck exam: Present: normal inspection. Absent: tenderness, meningismus, lymphadenopathy Respiratory exam: Present: normal lung sounds bilaterally. Absent: respiratory distress, wheezes, rales, rhonchi, stridor Cardiovascular Exam: Present: regular rate, normal rhythm, normal heart sounds. Absent: systolic murmur, diastolic murmur, rubs, gallop, clicks GI/Abdominal exam: Present: soft, tenderness (Suprapubic), normal bowel sounds. Absent: distended, guarding, rebound, rigid Extremities exam: Present: normal inspection, full ROM, normal capillary refill. Absent: tenderness, pedal edema, joint swelling, calf tenderness Back exam: Present: normal inspection Neurological exam: Present: alert, oriented X3 Psychiatric exam: Present: normal affect, normal mood Skin exam: Present: warm, dry, intact, normal color. Absent: rash Course Vital Signs 01/31/25 01/31/25 01/31/25 16:07 17:02 18:41 Temperature 98.9 F 99.0 F Pulse Rate 65 68 57 L Pulse Rate [ Sitting] Pulse Rate [ Standing] Pulse Rate [ Supine] Respiratory 17 20 20 Rate Blood Pressure 110/67 105/56 122/66 Blood Pressure [Right Arm Standing] Blood Pressure [Right Arm Supine] Blood Pressure [Right Arm] O2 Sat by Pulse 100 100 99 Oximetry 01/31/25 01/31/25 01/31/25 18:51 19:50 20:25 Temperature 98.1 F Pulse Rate 63 Pulse Rate [ 50 L Sitting] Pulse Rate [ 90 Standing] Pulse Rate [ 66 Supine] Respiratory 19 Rate Blood Pressure 114/65 Blood Pressure 114/67 [Right Arm Standing] Blood Pressure 101/68 [Right Arm Supine] Blood Pressure 105/64 [Right Arm] O2 Sat by Pulse 100 Oximetry Medical Decision Making - Medical Decision Making Was pt. sent in by a medical professional or institution (, PA, [employer], urgent care, hospital, or assisted...) When possible be specific @ -No Did you speak to anyone other than the patient for history (EMS, parent, family, police, friend...)? What history was obtained from this source @ -No Did you review nursing and triage notes (agree or disagree)? Why? @ -I reviewed and agree with nursing and triage notes Were old charts reviewed (outside hosp., previous admission, EMS record, old EKG, old radiological studies, urgent care reports/EKG's, assisted records)? Report findings @ -No old charts were reviewed Differential Diagnosis (chest pain, altered mental status, abdominal pain women, abdominal pain men, vaginal bleeding, weakness, fever, dyspnea, syncope, headache, dizziness, GI bleed, back pain, seizure, CVA, palpatations, mental health, musculoskeletal)? @ -Differential Vaginal Bleeding: Spontaneous , threatened , molar , ectopic , bloody show, incompetent cervix, abruptioplacenta, placenta previa, uterine rupture, dysfunctional uterine bleeding, hemorrhage, uterine fibroi ds, this is not meant to be an all-inclusive list. EKG interpreted by me (3pts min.). @ -EKG at 1816 shows sinus bradycardia with sinus arrhythmia rate 55, OR 161, QRS 90, QTQTc [id number] X-rays interpreted by me (1pt min.). @ -None done CT interpreted by me (1pt min.). @ -None done U/S interpreted by me (1pt. min.). @ - ultrasound reveals single live intrauterine with a he art rate of 135 measuring 17 weeks 2 days, vascular myometrium What testing was considered but not performed or refused? (CT, X-rays, U/S, labs)? Why? @ -None What meds were considered but not given or refused? Why? @ -None Did you discuss the management of the patient with other professionals (pr ofessionals i.e. , PA, [employer], lab, RT, psych nurse, social problems specialist, display specialist, teacher, service officer, porter sample case)? Give summary @ -No Was smoking cessation discussed for >3mins.? @ -No Was critical care preformed (if so, how long)? @ -No Were there social determinants of health that impacted care today? How? (Homelessness, low income, unemployed, alcoholism, drug addiction, transportation, low edu. Level, literacy, decrease access to med. care, prison, rehab)? @ -No Was there de-escalation of care discussed even if they declined (Discuss DNR or withdrawal of care, Hospice)? DNR status @ -No What co-morbidities impacted this encounter? (DM, HTN, Smoking, COPD, CAD, Cancer, CVA, ARF, Chemo, Hep., AIDS, mental health diagnosis, sleep apnea, morbid obesity)? @ -None Was patient admitted / discharged? Hospital course, mention meds given and route, prescriptions, significant lab abnormalities, going to OR and other pertinent info. @ -Discharge.patient presented the emergency department for evaluation of vaginal bleeding in . Laboratory studies obtained revealing no significant leukocytosis, hemoglobin 11.3 which is appropriate in and likely physiologic. Coagulation studies nonactionable; CMP shows mild hyponatremia with a sodium of 133. Patient received 2 L of IV fluids in the emergency department. UA shows moderate leukocyte esterase, 6 WBCs, 11 squamous cells. This will be sent for urine culture. Urine drug screen positive for marijuana. Negative for COVID, influenza, RSV. Ultrasound of the fetus reveals a single live intrauterine measuring 17 weeks 2 days. Advised strict pelvic rest and bedrest until she follows up with her REGIONAL GEODETIC ADVISOR. She is understanding and agreeable with this plan. Patient is stable at time of discharge. Case discussed with Dr. Rios. Undiagnosed new problem with uncertain prognosis? @ -No Drug Therapy requiring intensive monitoring for toxicity (Heparin, Nitro, Insulin, Cardizem)? @ -No Were any procedures done? @ -No Diagnosis/symptom? @ -Vaginal bleeding Acute, or Chronic, or Acute on Chronic? @ -Acute Uncomplicated (without systemic symptoms) or Complicated (systemic symptoms)? @ -Uncomplicated Side effects of treatment? @ -No Exacerbation, Progression, or Severe Exacerbation? @ -No Poses a threat to life or bodily function? How? (Chest pain, [place], [place], pneumonia, PE, COPD, DKA, ARF, appy, cholecystitis, CVA, Diverticulitis, Homicidal, Suicidal, threat to staff... and all critical care pts) @ -No - Lab Data Result diagrams: 01/31/25 16:28 01/31/25 16:28 Lab Results 01/31/25 01/31/25 01/31/25 Range/Units 16:15 16:28 16:28 WBC 7.1 (3.8-10.6) k/uL RBC 4.00 (3.80-5.40) m/uL Hgb 11.3 L (11.4-16.0) gm/dL Hct 34.5 (34.0-46.0) % MCV 86.3 (80.0-100.0) fL MCH 28.3 (25.0-35.0) pg MCHC 32.8 (31.0-37.0) g/dL RDW 14.3 (11.5-15.5) % Plt Count 259 (150-450) k/uL MPV 8.6 Neutrophils % 46 % Lymphocytes % 38 % Monocytes % 7 % Eosinophils % 5 % Basophils % 1 % Neutrophils # 3.3 (1.3-7.7) k/uL Lymphocytes # 2.7 (1.0-4.8) k/uL Monocytes # 0.5 (0-1.0) k/uL Eosinophils # 0.4 (0-0.7) k/uL Basophils # 0.1 (0-0.2) k/uL PT (10.0-12.5) sec INR (<1.2) APTT (22.0-30.0) sec Sodium 133 L (137-145) mmol/L Potassium 3.5 (3.5-5.1) mmol/L Chloride 105 (98-107) mmol/L Carbon Dioxide 20 L (22-30) mmol/L Anion Gap 8 mmol/L BUN 3 L (7-17) mg/dL Creatinine 0.47 L (0.52-1.04) mg/dL Est GFR (CKD-EPI)AfAm >90 (>60 ml/min/1.73 sqM) Est GFR (CKD-EPI)NonAf >90 (>60 ml/min/1.73 sqM) Glucose 86 (74-99) mg/dL Calcium 8.4 (8.4-10.2) mg/dL Total Bilirubin 0.6 (0.2-1.3) mg/dL AST 20 (14-36) U/L ALT 9 (4-34) U/L Alkaline Phosphatase 32 L (38-126) U/L Total Protein 6.4 (6.3-8.2) g/dL Albumin 3.4 L (3.5-5.0) g/dL HCG, Quant 69678.5 mIU/mL Urine Color Urine Appearance (Clear) Urine pH (5.0-8.0) Ur Specific [place] (1.001-1.035) Urine Protein (Negative) Urine Glucose (UA) (Negative) Urine Ketones (Negative) Urine Blood (Negative) Urine Nitrite (Negative) Urine Bilirubin (Negative) Urine Urobilinogen (<2.0) mg/dL Ur Leukocyte Esterase (Negative) Urine RBC (0-5) /hpf Urine WBC (0-5) /hpf Ur Squamous Epith Cells (0-4) /hpf Urine Mucus (None) /hpf Urine Opiates Screen (NotDetected) Ur Oxycodone Screen (NotDetected) Urine Methadone Screen (NotDetected) Ur Barbiturates Screen (NotDetected) U Tricyclic Antidepress (NotDetected) Ur Phencyclidine Scrn (NotDetected) Ur Amphetamines Screen (NotDetected) U Methamphetamines Scrn (NotDetected) U Benzodiazepines Scrn (NotDetected) Urine Cocaine Screen (NotDetected) U Marijuana (THC) Screen (NotDetected) Influenza Type A (PCR) (Not Detectd) Influenza Type B (PCR) (Not Detectd) RSV (PCR) (Not Detectd) SARS-CoV-2 (PCR) (Not Detectd) Blood Type A Positive Blood Type Recheck A Pos Bld Type Recheck Status No 01/31/25 01/31/25 01/31/25 Range/Units 17:35 17:45 18:23 WBC (3.8-10.6) k/uL RBC (3.80-5.40) m/uL Hgb (11.4-16.0) gm/dL Hct (34.0-46.0) % MCV (80.0-100.0) fL MCH (25.0-35.0) pg MCHC (31.0-37.0) g/dL RDW (11.5-15.5) % Plt Count (150-450) k/uL MPV Neutrophils % % Lymphocytes % % Monocytes % % Eosinophils % % Basophils % % Neutrophils # (1.3-7.7) k/uL Lymphocytes # (1.0-4.8) k/uL Monocytes # (0-1.0) k/uL Eosinophils # (0-0.7) k/uL Basophils # (0-0.2) k/uL PT 10.5 (10.0-12.5) sec INR 0.9 (<1.2) APTT 23.8 (22.0-30.0) sec Sodium (137-145) mmol/L Potassium (3.5-5.1) mmol/L Chloride (98-107) mmol/L Carbon Dioxide (22-30) mmol/L Anion Gap mmol/L BUN (7-17) mg/dL Creatinine (0.52-1.04) mg/dL Est GFR (CKD-EPI)AfAm (>60 ml/min/1.73 sqM) Est GFR (CKD-EPI)NonAf (>60 ml/min/1.73 sqM) Glucose (74-99) mg/dL Calcium (8.4-10.2) mg/dL Total Bilirubin (0.2-1.3) mg/dL AST (14-36) U/L ALT (4-34) U/L Alkaline Phosphatase (38-126) U/L Total Protein (6.3-8.2) g/dL Albumin (3.5-5.0) g/dL HCG, Quant mIU/mL Urine Color Yellow Urine Appearance Cloudy H (Clear) Urine pH 7.0 (5.0-8.0) Ur Specific [place] 1.019 (1.001-1.035) Urine Protein Negative (Negative) Urine Glucose (UA) Negative (Negative) Urine Ketones Negative (Negative) Urine Blood Negative (Negative) Urine Nitrite Negative (Negative) Urine Bilirubin Negative (Negative) Urine Urobilinogen 2.0 (<2.0) mg/dL Ur Leukocyte Esterase Moderate H (Negative) Urine RBC 2 (0-5) /hpf Urine WBC 6 H (0-5) /hpf Ur Squamous Epith Cells 11 H (0-4) /hpf Urine Mucus Rare H (None) /hpf Urine Opiates Screen Not Detected (NotDetected) Ur Oxycodone Screen Not Detected (NotDetected) Urine Methadone Screen Not Detected (NotDetected) Ur Barbiturates Screen Not Detected (NotDetected) U Tricyclic Antidepress Not Detected (NotDetected) Ur Phencyclidine Scrn Not Detected (NotDetected) Ur Amphetamines Screen Not Detected (NotDetected) U Methamphetamines Scrn Not Detected (NotDetected) U Benzodiazepines Scrn Not Detected (NotDetected) Urine Cocaine Screen Not Detected (NotDetected) U Marijuana (THC) Screen Detected H (NotDetected) Influenza Type A (PCR) (Not Detectd) Influenza Type B (PCR) (Not Detectd) RSV (PCR) (Not Detectd) SARS-CoV-2 (PCR) (Not Detectd) Blood Type Blood Type Recheck Bld Type Recheck Status 01/31/25 Range/Units 18:59 WBC (3.8-10.6) k/uL RBC (3.80-5.40) m/uL Hgb (11.4-16.0) gm/dL Hct (34.0-46.0) % MCV (80.0-100.0) fL MCH (25.0-35.0) pg MCHC (31.0-37.0) g/dL RDW (11.5-15.5) % Plt Count (150-450) k/uL MPV Neutrophils % % Lymphocytes % % Monocytes % % Eosinophils % % Basophils % % Neutrophils # (1.3-7.7) k/uL Lymphocytes # (1.0-4.8) k/uL Monocytes # (0-1.0) k/uL Eosinophils # (0-0.7) k/uL Basophils # (0-0.2) k/uL PT (10.0-12.5) sec INR (<1.2) APTT (22.0-30.0) sec Sodium (137-145) mmol/L Potassium (3.5-5.1) mmol/L Chloride (98-107) mmol/L Carbon Dioxide (22-30) mmol/L Anion Gap mmol/L BUN (7-17) mg/dL Creatinine (0.52-1.04) mg/dL Est GFR (CKD-EPI)AfAm (>60 ml/min/1.73 sqM) Est GFR (CKD-EPI)NonAf (>60 ml/min/1.73 sqM) Glucose (74-99) mg/dL Calcium (8.4-10.2) mg/dL Total Bilirubin (0.2-1.3) mg/dL AST (14-36) U/L ALT (4-34) U/L Alkaline Phosphatase (38-126) U/L Total Protein (6.3-8.2) g/dL Albumin (3.5-5.0) g/dL HCG, Quant mIU/mL Urine Color Urine Appearance (Clear) Urine pH (5.0-8.0) Ur Specific [place] (1.001-1.035) Urine Protein (Negative) Urine Glucose (UA) (Negative) Urine Ketones (Negative) Urine Blood (Negative) Urine Nitrite (Negative) Urine Bilirubin (Negative) Urine Urobilinogen (<2.0) mg/dL Ur Leukocyte Esterase (Negative) Urine RBC (0-5) /hpf Urine WBC (0-5) /hpf Ur Squamous Epith Cells (0-4) /hpf Urine Mucus (None) /hpf Urine Opiates Screen (NotDetected) Ur Oxycodone Screen (NotDetected) Urine Methadone Screen (NotDetected) Ur Barbiturates Screen (NotDetected) U Tricyclic Antidepress (NotDetected) Ur Phencyclidine Scrn (NotDetected) Ur Amphetamines Screen (NotDetected) U Methamphetamines Scrn (NotDetected) U Benzodiazepines Scrn (NotDetected) Urine Cocaine Screen (NotDetected) U Marijuana (THC) Screen (NotDetected) Influenza Type A (PCR) Not Detected (Not Detectd) Influenza Type B (PCR) Not Detected (Not Detectd) RSV (PCR) Not Detected (Not Detectd) SARS-CoV-2 (PCR) Not Detected (Not Detectd) Blood Type Blood Type Recheck Bld Type Recheck Status Disposition Clinical Impression: Vaginal bleeding during Disposition: HOME SELF-CARE Condition: Stable Instructions (If sedation given, give patient instructions): Threatened Miscarriage (ED) Additional Instructions: Please follow up with your primary care provider and REGIONAL GEODETIC ADVISOR. Remain on pelvic and bed rest until follow up. Return to the emergency department for new or worsening symptoms. Is patient prescribed a controlled substance at d/c from ED?: No Referrals: None,Stated [Primary Care Provider] - 1-2 days
[2025-01-31 16:44] LABS: Basophils # (A) 0.1 k/uL (0-0.2); Basophils % (A) 1 %; Eosinophils # (A) 0.4 k/uL (0-0.7); Eosinophils % (A) 5 %; HCT 34.5 % (34.0-46.0); HGB 11.3 gm/dL (11.4-16.0); Lymphocytes # (A) 2.7 k/uL (1.0-4.8); Lymphocytes % (A) 38 %; MCH 28.3 pg (25.0-35.0); MCHC 32.8 g/dL (31.0-37.0); MCV 86.3 fL (80.0-100.0); Mean Platelet Volume 8.6; Monocytes # (A) 0.5 k/uL (0-1.0); Monocytes % (A) 7 %; Neutrophils # (A) 3.3 k/uL (1.3-7.7); Neutrophils % (A) 46 %; Platelet Count 259 k/uL (150-450); RDW 14.3 % (11.5-15.5); WBC 7.1 k/uL (3.8-10.6)
--- NOTE | 2025-01-31 17:10 | US ---
EXAMINATION TYPE: US OB >= 14 wk fetus DATE OF EXAM: 01/31/2025 COMPARISON: Prior ultrasound November 11, 2024 CLINICAL INDICATION: Female, 19 years old with history of bleeding, 17 wks; Patient states bleeding x 3 days TECHNIQUE: Transabdominal (TA) FINDINGS: GESTATIONAL AGE / DATING Physician Established: (17 weeks/2 days) EDC: 07/09/2025 Dates by Current Scan: (17 weeks/1 days) EDC: 07/10/2025 Beta HCG (if available): Not available at this time SURVEY IUP: Single PLACENTA: Posterior PREVIA: No Previa CARMEN: 13.6 cm Normal CERVICAL LENGTH (transabdominal: norm > 3.0cm): 4.1 cm BIOMETRY PRESENTATION: Vertex BPD: 3.7 cm cm 17 weeks / 3 days HC: 13.5 cm 17 weeks / 0 days AC: 11.3 cm 17 weeks / 1 days FL: 2.3 cm 16 weeks / 6 days ESTIMATED WEIGHT IN GRAMS: 175 grams ESTIMATED WEIGHT IN LBS/OZ: 0 lbs. 6 oz. WEIGHT PERCENTAGE BASED ON ESTABLISHED DATES: 24% HC/AC: 1.2 Normal FL/AC: 20% HEART RATE: 155 bpm RHYTHM: Normal Anechoic area seen at placental tip = 1.3 x 2.6 x 0.5 cm. Uterine myometrium appears vascular. Single live intrauterine gestation redemonstrated. Normal cephalad presentation seen. No cervical thi nning. biometry measurements congruent and within normal limits. Interval satisfactory progress ion noted. Estimated amniotic fluid index within normal limits. No placenta previa. Tiny fluid collec tion along the inferior margin of the placenta. IMPRESSION: As above. [facility], , 01/31/2025 5:07 PM
[2025-01-31 17:13] LABS: ALT 9 U/L (4-34); AST 20 U/L (14-36); African American GFR (CKD) >90 (>60 ml/min/1.73 sqM); Albumin 3.4 g/dL (3.5-5.0); Alkaline Phosphatase 32 U/L (38-126); Anion Gap 8 mmol/L; Blood Urea Nitrogen 3 mg/dL (7-17); Calcium 8.4 mg/dL (8.4-10.2); Carbon Dioxide 20 mmol/L (22-30); Chloride 105 mmol/L (98-107); Glucose 86 mg/dL (74-99); Non-African American GFR(CKD) >90 (>60 ml/min/1.73 sqM); Potassium 3.5 mmol/L (3.5-5.1); Sodium 133 mmol/L (137-145); Total Bilirubin 0.6 mg/dL (0.2-1.3); Total Protein 6.4 g/dL (6.3-8.2)
[2025-01-31 17:28] LABS: HCG,Quantitative Serum 14322.5 mIU/mL
[2025-01-31 17:57] LABS: Appearance,Urine Cloudy (Clear); Bilirubin,Urine Negative (Negative); Blood,Urine Negative (Negative); Color,Urine Yellow; Glucose,Urine (UA) Negative (Negative); Ketones,Urine Negative (Negative); Leukocyte Esterase,Urine Moderate (Negative); Mucus,Urine Rare /hpf; Nitrite,Urine Negative (Negative); Protein,Urine Negative (Negative); RBC,Urine 2 /hpf (0-5); Specific Gravity,Urine 1.019 (1.001-1.035); Squamous Epithelial Cell,Urine 11 /hpf (0-4); WBC,Urine 6 /hpf (0-5)
[2025-01-31 18:15] LABS: INR 0.9 (<1.2); Partial Thromboplastin Time 23.8 sec (22.0-30.0); Prothrombin Time 10.5 sec (10.0-12.5)
[2025-01-31] MEDS: ACETAMINOPHEN TAB 325 MG TAB PO STA (18:20)
[2025-01-31] MEDS: ONDANSETRON 4 MG/2 ML VIAL IVP STA (18:32)
[2025-01-31] MEDS: PYRIDOXINE 100 MG/ML 1 ML VIAL IVP STA (18:32)
[2025-01-31 19:22] LABS: Amphetamine Screen,Urine Not Detected (NotDetected); Barbiturate Screen,Urine Not Detected (NotDetected); Benzodiazepines Screen,Urine Not Detected (NotDetected); Cocaine Screen,Urine Not Detected (NotDetected); Methadone Screen, Urine Not Detected (NotDetected); Opiate Screen,Urine Not Detected (NotDetected); Phencyclidine Screen,Urine Not Detected (NotDetected); Tricyclic Antidepressant,Urine Not Detected (NotDetected); Urn Cannabinoid Scrn Detected (NotDetected)
[2025-01-31 19:23] LABS: Oxycodone Screen, Urine Not Detected (NotDetected)
[2025-01-31 19:43] LABS: Influenza A Not Detected (Not Detectd); Influenza B Not Detected (Not Detectd); RSV Not Detected (Not Detectd)
[2025-01-31 19:51] VITALS: BP 114/65; PULSE 63; RESP 19
[2025-01-31 20:26] VITALS: TEMP 98.1
== END 2025-01-31 20:25 | disposition home or self-care (01) ==
LOC: EC 16:06
DX: O20.9 Hemorrhage in early pregnancy, unspecified (principal); Z3A.17 17 weeks gestation of pregnancy
CPT/HCPCS: 36415; 93005; 86900; 86901; 80053; 85025; 85610; 85730; 81001; 84702; 80306; 87086; 87636; 76805; 99284; 96374; 96375; 96361; J3415; J2405